=== PATIENT | female | born 1990 ===

== ENCOUNTER 2017-11-10 10:54 | Emergency (ER) | payer MEDICAID ==
[2017-11-10 11:37] VITALS: RESP 20
--- NOTE | 2017-11-10 12:50 | ED PDOC ---
HPI: Female Pain Time Seen by Provider: 11/10/17 11:33 Chief Complaint (Nursing): GI Problem Chief Complaint (Provider): Vaginal discharge, nausea History Per: Patient History/Exam Limitations: no limitations Onset/Duration Of Symptoms: Days Current Symptoms Are (Timing): Still Present Severity: None Additional Complaint(s): Pt states her LMP was 09/25/17. Pt states that she has been having nausea every day for the last few days. No fever/chills. Pt denies abdominal pain/pelvic pain. Pt denies vaginal discharge. Pt did not take test at home. Pt reports yellow discharge which is more than her normal discharge. Pt states it also has an abnormal odor to her. Past Medical History Reviewed: Historical Data, Nursing Documentation, Vital Signs Vital Signs: Last Vital Signs Temp 98.3 F 11/10/17 11:35 Pulse 76 11/10/17 11:35 Resp 20 11/10/17 11:35 BP 131/80 11/10/17 11:35 Pulse Ox 97 11/10/17 11:35 - Medical History PMH: No Chronic Diseases - Surgical History Surgical History: No Surg Hx - Family History Family History: States: No Known Family Hx - Living Arrangements Living Arrangements: With Family - Immunization History Hx Tetanus Toxoid Vaccination: No Hx Influenza Vaccination: No Hx Pneumococcal Vaccination: No - Home Medications Home Medications: Ambulatory Orders Medication Instructions Recorded Doxylamine/Pyridoxine HCl (B6) 2 each PO QPM #20 tablet. 11/10/17 [Aaron Moreno 10-10 mg Tablet] - Allergies Allergies/Adverse Reactions: Allergies Allergy/AdvReac Type Severity Reaction Status Date / Time No Known Allergies Allergy Verified 11/10/17 11:37 Review of Systems ROS Statement: Except As Marked, All Systems Reviewed And Found Negative Constitutional: Negative for: Fever, Chills Genitourinary Female: Positive for: Vaginal Discharge. Negative for: Dysuria, Frequency, Vaginal Bleeding, Pelvic Pain Physical Exam - Reviewed Nursing Documentation Reviewed: Yes Vital Signs Reviewed: Yes - Physical Exam Appears: Positive for: Well, Non-toxic, No Acute Distress Head Exam: Positive for: ATRAUMATIC, NORMAL INSPECTION, NORMOCEPHALIC Skin: Positive for: Normal Color, Warm, DRY Eye Exam: Positive for: Normal appearance ENT: Positive for: Normal ENT Inspection Neck: Positive for: Normal, Painless ROM Cardiovascular/Chest: Positive for: Regular Rate, Rhythm Respiratory: Positive for: CNT, Normal Breath Sounds Gastrointestinal/Abdominal: Positive for: Normal Exam, Soft. Negative for: Tenderness Pelvic Exam: Positive for: External Exam Normal, No Cerv. Motion Tender, No Masses, Active Bleeding, Discharge (Yellow). Negative for: Speculum Exam Normal Back: Positive for: Normal Inspection Extremity: Positive for: Normal ROM Neurologic/Psych: Positive for: Alert - ECG O2 Sat by Pulse Oximetry: 97 Medical Decision Making Medical Decision Making: Peg (+) Discussed prenatals. Disposition - Clinical Impression Clinical Impression: Nausea/vomiting in , Vaginal discharge Counseled Patient/Family Regarding: Diagnosis, Need For Followup, Rx Given - Disposition Disposition: Routine/Home Disposition Time: 12:50 Condition: GOOD Prescriptions: Doxylamine/Pyridoxine HCl (B6) [Aaron Moreno 10-10 mg Tablet] 2 each PO QPM #20 tablet. Instructions: (ED)
[2017-11-10 13:09] VITALS: BP 112/78; PULSE 72; TEMP 98; O2SAT 98
== END 2017-11-10 13:11 | disposition home or self-care (01) ==
LOC: H.ER 10:54
DX: O21.9 Vomiting of pregnancy, unspecified (principal); N89.8 Other specified noninflammatory disorders of vagina

== ENCOUNTER 2017-11-23 21:41 | Emergency (ER) | payer MEDICAID, OTHER ==
[2017-11-23 21:48] VITALS: BP 138/87; PULSE 74; RESP 16; TEMP 98.1; O2SAT 99
[2017-11-23] MEDS ORDERED: Sodium Chloride 0.9% 1,000 ML IV STA (22:04)
--- NOTE | 2017-11-23 22:06 | ED PDOC ---
HPI:Nausea, Vomiting, Diarrhea Time Seen by Provider: 11/23/17 21:49 Chief Complaint (Nursing): GI Problem Chief Complaint (Provider): nausea/vomiting History Per: Patient History/Exam Limitations: no limitations Onset/Duration Of Symptoms: Days, Waxing/Waning Current Symptoms Are (Timing): Still Present Additional History Per: Patient Additional Complaint(s): 27 y/o female, approximately 8 weeks gestation, presents with nausea/vomiting x 3 days. Patient states symptoms have been on-and-off x 2 weeks, was seen in ED and prescribed medicine which helped but ran out of that medicine. Denies fever , chest pain, shortness of breath, palpitations, abdominal/pelvic pain, vaginal bleeding/discarge, urinary symptoms. Patient has not yet received care. Past Medical History Reviewed: Historical Data, Nursing Documentation, Vital Signs Vital Signs: Last Vital Signs Temp 98.1 F 11/23/17 21:44 Pulse 74 11/23/17 21:44 Resp 16 11/23/17 21:44 BP 138/87 11/23/17 21:44 Pulse Ox 99 11/23/17 21:44 - Medical History PMH: No Chronic Diseases - Surgical History Surgical History: No Surg Hx - Family History Family History: States: No Known Family Hx - Living Arrangements Living Arrangements: With Family - Immunization History Hx Tetanus Toxoid Vaccination: No Hx Influenza Vaccination: No Hx Pneumococcal Vaccination: No - Home Medications Home Medications: Ambulatory Orders Medication Instructions Recorded Doxylamine/Pyridoxine HCl (B6) 2 each PO QPM #20 tablet. 11/10/17 [Aaron Moreno 10-10 mg Tablet] Doxylamine/Pyridoxine HCl (B6) 1 - 2 each PO HS #16 tablet. 11/23/17 [Aaron Moreno 10-10 mg Tablet] - Allergies Allergies/Adverse Reactions: Allergies Allergy/AdvReac Type Severity Reaction Status Date / Time No Known Allergies Allergy Verified 11/10/17 11:37 Review of Systems ROS Statement: Except As Marked, All Systems Reviewed And Found Negative Gastrointestinal: Positive for: Nausea, Vomiting Physical Exam - Reviewed Nursing Documentation Reviewed: Yes Vital Signs Reviewed: Yes - Physical Exam Appears: Positive for: Well, Non-toxic, No Acute Distress Head Exam: Positive for: ATRAUMATIC, NORMAL INSPECTION, NORMOCEPHALIC Skin: Positive for: Normal Color Eye Exam: Positive for: Normal appearance ENT: Positive for: Normal ENT Inspection Cardiovascular/Chest: Positive for: Regular Rate, Rhythm Respiratory: Positive for: Normal Breath Sounds Gastrointestinal/Abdominal: Positive for: Normal Exam Back: Positive for: Normal Inspection Extremity: Positive for: Normal ROM Neurologic/Psych: Positive for: Alert, Oriented - Laboratory Results Result Diagrams: 11/23/17 22:50 11/23/17 22:50 - ECG O2 Sat by Pulse Oximetry: 99 - Progress ED Course And Treament: labs, urine, IV fluids, IV reglan On re-eval, patient states she is feeling better; tolerating PO. Patient educated on findings, discharged with rx Aaron. Advised follow up Epic Kaleidoscope Analyst 2-3 days. Return precautions given. Disposition - Clinical Impression Clinical Impression: Hyperemesis gravidarum - Patient ED Disposition Is Patient to be Admitted: No Counseled Patient/Family Regarding: Studies Performed, Diagnosis, Need For Followup, Rx Given - Disposition [facility]errals: [facility]] [facility] [Outside] Disposition: Routine/Home Disposition Time: 01:30 Condition: IMPROVED Prescriptions: Doxylamine/Pyridoxine HCl (B6) [Aaron Moreno 10-10 mg Tablet] 1 - 2 each PO HS # 16 tablet. Instructions: Hyperemesis Gravidarum (ED) Forms: [employer] (Lao)
[2017-11-23 23:02] LABS: BASO % 0.5 % (0.0-2.0); EOS # 0.1 K/uL (0.0-0.7); EOS % 1.2 % (0.0-4.0); LYMPH # 2.3 K/uL (1.0-4.3); LYMPH % 25.4 % (20.0-40.0); MEAN CELL VOLUME 89.8 fl (81.0-99.0); MEAN CORPUSCULAR HEMOGLOBIN 30.3 pg (27.0-31.0); MEAN CORPUSCULAR HGB CONC 33.7 g/dL (33.0-37.0); MEAN PLATELET VOLUME 10.6 fl (7.2-11.7); MONO # 1.1 K/uL (0.0-0.8); MONO % 12.1 % (0.0-10.0); NEUT # 5.5 K/uL (1.8-7.0); NEUT % 60.8 % (50.0-75.0); NRBC % 0.1 % (0.0-0.0); RBC 4.64 Mil/uL (3.80-5.20)
[2017-11-23 23:12] LABS: ALB/GLOB RATIO 1.5 (1.0-2.1); ALBUMIN 4.8 g/dL (3.5-5.0); CALCIUM 9.8 mg/dL (8.4-10.2); GFR AFRICAN-AMERICAN > 60; GFR NON-AFRICAN AMERICAN > 60
[2017-11-23 23:15] LABS: ALT/SGPT 65 U/L (9-52); AST/SGOT 38 U/L (14-36); BLOOD UREA NITROGEN 13 mg/dl (7-17)
[2017-11-24 01:20] LABS: SQUAMOUS EPITHIAL 19 /hpf (0-5); URINE AMORPHOUS SEDIMENT RARE /ul (<OCC); URINE BACTERIA OCC (<OCC); URINE BILIRUBIN NEGATIVE (NEGATIVE); URINE CALCIUM OXALATE CRYSTALS RARE /hpf (<OCC); URINE CLARITY CLOUDY (Clear); URINE COLOR AMBER (YELLOW); URINE GLUCOSE (UA) NEG (Normal); URINE NITRATE NEGATIVE (NEGATIVE); URINE PROTEIN 30 mg/dL (NEGATIVE)
[2017-11-24 01:21] LABS: URINE BLOOD SMALL (NEGATIVE); URINE LEUKOCYTE ESTERASE SMALL Leu/uL (Negative)
== END 2017-11-24 01:37 | disposition home or self-care (01) ==
LOC: H.ER 21:41
DX: O21.0 Mild hyperemesis gravidarum (principal); O99.89 Other specified diseases and conditions complicating pregnancy, childbirth and the puerperium; Z3A.08 8 weeks gestation of pregnancy
CPT/HCPCS: 80053; 81003; 81025; 85025; 87086; 96360; 99283; J2765; J7040

== ENCOUNTER 2017-12-07 20:45 | Emergency (ER) | payer MEDICAID, OTHER ==
[2017-12-07 21:02] VITALS: BP 124/81; PULSE 84; RESP 16; TEMP 98.6; O2SAT 98
[2017-12-07] MEDS ORDERED: Sodium Chloride 0.9% 1,000 ML IV STA (22:25)
--- NOTE | 2017-12-07 22:28 | ED PDOC ---
HPI:Nausea, Vomiting, Diarrhea Time Seen by Provider: 12/07/17 22:19 Chief Complaint (Nursing): Abdominal Pain Chief Complaint (Provider): Vomiting History Per: Patient History/Exam Limitations: no limitations Onset/Duration Of Symptoms: Days (3) Current Symptoms Are (Timing): Still Present Additional Complaint(s): Nausea, vomit, nonbloody for 3 days. Cough, nasal congestion. Same symptoms few weeks ago. Denies any abd pain, weakness, chest pain, vaginal bleeding, dysuria. No weakness. Is preg. No care anywhere. Past Medical History Reviewed: Nursing Documentation, Vital Signs Vital Signs: Last Vital Signs Temp 98.6 F 12/07/17 20:53 Pulse 84 12/07/17 20:53 Resp 16 12/07/17 20:53 BP 124/81 12/07/17 20:53 Pulse Ox 98 12/07/17 20:53 - Medical History PMH: No Chronic Diseases - Surgical History Surgical History: No Surg Hx - Family History Family History: States: Unknown Family Hx - Living Arrangements Living Arrangements: With Family - Social History Current smoker - smoking cessation education provided: No Alcohol: None Drugs: Denies - Immunization History Hx Tetanus Toxoid Vaccination: No Hx Influenza Vaccination: No Hx Pneumococcal Vaccination: No - Home Medications Home Medications: Ambulatory Orders Medication Instructions Recorded Doxylamine/Pyridoxine HCl (B6) 2 each PO QPM #20 tablet. 11/10/17 [Aaron Moreno 10-10 mg Tablet] Doxylamine/Pyridoxine HCl (B6) 1 - 2 each PO HS #16 tablet. 11/23/17 [Aaron Moreno 10-10 mg Tablet] Doxylamine/Pyridoxine HCl (B6) 1 each PO QPM 10 Days tablet. 12/07/17 [Aaron Moreno 10-10 mg Tablet] - Allergies Allergies/Adverse Reactions: Allergies Allergy/AdvReac Type Severity Reaction Status Date / Time No Known Allergies Allergy Verified 11/10/17 11:37 Review of Systems ROS Statement: Except As Marked, All Systems Reviewed And Found Negative Gastrointestinal: Positive for: Nausea, Vomiting Physical Exam - Reviewed Nursing Documentation Reviewed: Yes Vital Signs Reviewed: Yes - Physical Exam Appears: Positive for: Non-toxic, No Acute Distress Head Exam: Positive for: ATRAUMATIC, NORMAL INSPECTION, NORMOCEPHALIC Skin: Positive for: Normal Color, Warm, DRY Eye Exam: Positive for: EOMI, Normal appearance, PERRL ENT: Positive for: Normal ENT Inspection Neck: Positive for: Normal, Painless ROM Cardiovascular/Chest: Positive for: Regular Rate, Rhythm Respiratory: Positive for: CNT, Normal Breath Sounds Gastrointestinal/Abdominal: Positive for: Normal Exam, Bowel Sounds, Soft. Negative for: Tenderness Back: Positive for: Normal Inspection. Negative for: L CVA Tenderness, R CVA Tenderness Extremity: Positive for: Normal ROM. Negative for: Tenderness, Pedal Edema Neurologic/Psych: Positive for: Alert, Oriented - Laboratory Results Result Diagrams: 12/07/17 23:00 12/07/17 23:00 - ECG O2 Sat by Pulse Oximetry: 98 Pulse Ox Interpretation: Normal Disposition - Clinical Impression Clinical Impression: Hyperemesis gravidarum - Patient ED Disposition Is Patient to be Admitted: No Counseled Patient/Family Regarding: Studies Performed, Diagnosis, Need For Followup, Rx Given - Disposition [facility]errals[facility] - 12/08/17 Disposition: Routine/Home Disposition Time: 23:52 Condition: STABLE Prescriptions: Doxylamine/Pyridoxine HCl (B6) [Aaron Moreno 10-10 mg Tablet] 1 each PO QPM 10 Days tablet. Instructions: Hyperemesis Gravidarum (ED) Print Language: DANISH
[2017-12-07 23:04] LABS: BASO # 0.1 K/uL (0.0-0.2); BASO % 0.5 % (0.0-2.0); EOS % 0.3 % (0.0-4.0); HEMOGLOBIN 14.1 g/dL (12.0-16.0); LYMPH # 1.5 K/uL (1.0-4.3); LYMPH % 12.5 % (20.0-40.0); MEAN CELL VOLUME 89.1 fl (81.0-99.0); MEAN CORPUSCULAR HEMOGLOBIN 30.3 pg (27.0-31.0); MEAN PLATELET VOLUME 10.9 fl (7.2-11.7); MONO # 0.7 K/uL (0.0-0.8); MONO % 6.2 % (0.0-10.0); NEUT # 9.8 K/uL (1.8-7.0); NEUT % 80.5 % (50.0-75.0); RBC 4.66 Mil/uL (3.80-5.20); RED CELL DISTRIBUTION WIDTH 12.8 % (11.5-14.5); WHITE BLOOD COUNT 12.1 K/uL (4.8-10.8)
[2017-12-07 23:19] LABS: BLOOD UREA NITROGEN 9 mg/dl (7-17); CALCIUM 9.7 mg/dL (8.4-10.2); GFR AFRICAN-AMERICAN > 60; GFR NON-AFRICAN AMERICAN > 60
== END 2017-12-08 00:12 | disposition home or self-care (01) ==
LOC: H.ER 20:45
DX: O21.0 Mild hyperemesis gravidarum (principal)
CPT/HCPCS: 80048; 83690; 84702; 85025; 96360; 99282; J2765; J7040

== ENCOUNTER 2018-06-28 09:30 | Emergency (ER) | payer SELFPAY ==
[2018-06-28] MEDS ORDERED: Lactated Ringer's 1,000 ML IV SCH (11:30)
[2018-06-28 11:31] VITALS: BMI 25.4
--- NOTE | 2018-06-28 17:00 | OBHP ---
Datetime: 06/28/2018 11:27 IP Adm Impression: Term, intrauterine IP Admit Plan: Observation/Evaluation; Discharge home Admit Comment, IP Provider: Pt is , 39.3 wk present to [facility] due to vaginal bleeding and abd pain . PT state that she noted vaginal bleed on paper and toilet at 8:30 am today (06/28/09). Pt denies gu sh of fluid, or regular contraction. Pt Last sexual activity was 1 week ago, last visit was on . Pt have no other complain at moment. Pt denies fever, chills, Dizziness, headache, SOB chest pain, constipation or diarrhea. PT denies dysuria or polyuria. Allergy: none MED: PMH: none PSH:none Social: no smoke, drink or alcohol use 12:04 Assessment: Pt is , 39.3 wk present to [facility] due to vaginal bleeding and abd pain. PT state roseann t she noted vaginal bleed on paper and toilet at 8:30 am today (06/28/09). Pt is lying comfortable in bed with no acute distress Vitals: WNL monitor strip reassuring PE: Cervics is 1cm, 65%,-1 at 11:15 Plan Start IV LR 1000 at 999 Monitor vitals Monitor strip Reassess at 13:15 15:30 Reassessment Pt is lying comfortable in bed with no acute distress Pt contraction decreased after fluid was given VItal: WNL Strip is reassuring. PE: cervics still 1cm, 65%, -1 Plan Pt will be discharged due to pt is not in labor. Pt was educated about active labor Pt should continue following clinic. Pt should come to ER if see gush of water, increase bleeding, frequent contraction please go to ER . Case disccussed with Dr Geraldine Tinoco PGY1OB Hospitalist Addendum: Pt seen and examined by me. Agree w/ above. 28 yo G1 at 39+3 wks w/ c/o va ginal bleeding and ctxns. Spec: no bleeding. VE loose /-1 at 11:15am. Pt given IV fluid. VE u nchanged at 3:25 pm. NST reactive. Pt discharged home w/ labor precautions. (ES) Pelvic Type - PN: Adequate Extremities - PN: Normal Abdomen - PN: Normal Back - PN: Not Done Breast - PN: Not Done Lungs - PN: Normal Heart - PN: Normal Thyroid - PN: Not Done Neurologic - PN: Not Done HEENT - PN: Normal General - PN: Normal FHR - Baseline A Provider: 135 Comments, ACOG Physical Exam: Pt is lying comfortable in bed with no acute distress Cardiac : s1,s2 heard no extra heart sound Lung: clear lung in all quadrant Abd: BS+, mild tender, fundus above fundos Extremities: no calf tenderness Pelvic: no blood noted, cervic 1cm, 65%, -1 Pelvic exam was reassessed (15:30) No blood noted, cervic 1cm, 65% , -1 Gestation - Est Wks by US: 39.3 Vital Signs Provider: Reviewed; Within Normal Limits IP Chief Complaint: Uterine contractions; Vaginal bleeding NICHD Variability Prov Fetus A: Moderate 6-25bpm Dilatation, Provider: 1 Genitourinary Exam: Not Done DTRs - PN: Not Done
[2018-06-29 00:05] VITALS: RESP 18; TEMP 98.9
[2018-06-30 00:02] VITALS: BP 113/74; PULSE 72; O2SAT 99
== END 2018-06-28 15:30 | disposition home or self-care (01) ==
LOC: H.EROB2 09:30 → H.L&D 10:07 → H.EROB2 15:30
DX: O46.93 Antepartum hemorrhage, unspecified, third trimester (principal); O26.93 Pregnancy related conditions, unspecified, third trimester; R10.2 Pelvic and perineal pain; Z3A.39 39 weeks gestation of pregnancy; O47.1 False labor at or after 37 completed weeks of gestation

== ENCOUNTER 2018-06-29 09:49 | Emergency (ER) | payer SELFPAY ==
[2018-06-28 11:31] VITALS: BMI 25.4
[2018-06-29 19:07] VITALS: BP 113/74; PULSE 72; RESP 18; O2SAT 99
== END 2018-06-29 10:50 | disposition home or self-care (01) ==
LOC: H.EROB2 09:49
DX: O26.93 Pregnancy related conditions, unspecified, third trimester (principal); R10.2 Pelvic and perineal pain; Z3A.39 39 weeks gestation of pregnancy; O47.1 False labor at or after 37 completed weeks of gestation

== ENCOUNTER 2018-06-30 01:15 | Inpatient (IN) | payer MEDICAID, SELFPAY ==
[2018-06-30 02:28] VITALS: BMI 25.7
[2018-06-30] MEDS ORDERED: Lactated Ringer's 1,000 ML IV ONE (02:28)
[2018-06-30] MEDS ORDERED: Lactated Ringer's 1,000 ML IV SCH ×3 (02:30→21:00)
[2018-06-30 03:06] LABS: BASO # 0.1 K/uL (0.0-0.2); BASO % 0.5 % (0.0-2.0); EOS % 0.1 % (0.0-4.0); HEMOGLOBIN 13.5 g/dL (12.0-16.0); LYMPH # 1.7 K/uL (1.0-4.3); LYMPH % 13.9 % (20.0-40.0); MEAN CELL VOLUME 88.2 fl (81.0-99.0); MEAN CORPUSCULAR HEMOGLOBIN 30.7 pg (27.0-31.0); MEAN CORPUSCULAR HGB CONC 34.8 g/dL (33.0-37.0); MEAN PLATELET VOLUME 11.4 fl (7.2-11.7); MONO % 7.8 % (0.0-10.0); NEUT # 9.6 K/uL (1.8-7.0); NEUT % 77.7 % (50.0-75.0); NRBC % 0.1 % (0.0-0.0); RBC 4.39 Mil/uL (3.80-5.20); RED CELL DISTRIBUTION WIDTH 14.3 % (11.5-14.5); WHITE BLOOD COUNT 12.4 K/uL (4.8-10.8)
[2018-06-30] MEDS ORDERED: Fentanyl/Bupivacaine HCl 250 ML EPI ONE (03:45)
[2018-06-30 05:42] VITALS: RESP 20
[2018-06-30] MEDS ORDERED: Oxytocin 30 UNIT 30 UNITS/500 ML BAG IV ONE ×2 (06:18→07:58)
[2018-06-30] MEDS ORDERED: OXYTOCIN/0.9 % NS 20 UNIT/1,000 ML BAG IV SCH (08:00)
--- NOTE | 2018-06-30 09:09 | OBHP ---
Datetime: 06/30/2018 02:41 IP Admit Plan: Admit to unit; Initiate labor protocol FHR - Baseline A Provider: 140 Comments, ACOG Physical Exam: GEN: NAD HEENT: Normocephalic, EOMI RESP: CTA b/l CV: RRR, No murmurs noted ABD: gravid, soft LE: No edema NEuro: AAOx3 EGA AdmitDate IP: 39.5 Vital Signs Provider: Reviewed; Within Normal Limits IP Chief Complaint: Uterine contractions NICHD Variability Prov Fetus A: Moderate 6-25bpm FHR Category Provider Fetus A: Category I Dilatation, Provider: 5 Effacement, Provider: 80 Datetime: 06/30/2018 02:19 NICHD Accel Fetus A IP Provider: [id number] Datetime: 06/29/2018 11:00 IP Adm Impression: Term, intrauterine ; No Active Labor; Intact Membranes Admit Comment, IP Provider: Aniya is a 28 year old at 39.4 weeks who presented to triage for a few hours of painful contractions about 6 minutes apart that began a few hours before presentation. S he was seen in triage yesterday with complaints of ctx and vaginal spotting and was dilated to 1cm at that time. Denies vaginal bleeding or LOF. Good movement. Pregnancies G1: current, denies complications PMH: Denies PSH: Denies Medications: PNV ALLERGIES: NKDA Social: Denies tobacco, alcohol, drug use Objective See PE section A/P: 28 yo at 39.4 in latent labor. EFM Category I. Reviewed options with her given her laten t labor status of admission for pain control or discharge with return precautions once she is closer to active labor. She decided to labor at home and will return once her contractions are 3-5 minutes a part or more painful in intensity. OB Hospitalist note Pt seen and agree with above note by Miranda Smith OB Fellow...discharge home YARON SUAREZENT - PN: Normal General - PN: Normal Membranes, Provider: Intact Gestation - Est Wks by US: 39.4 IP Hx Assessment: The History has been Reviewed and is Current NICHD Decel Fetus A IP Provider: None Station, Provider: -1
--- NOTE | 2018-06-30 09:11 | OBADHP ---
Datetime: 06/30/2018 02:41 FHR - Baseline A Provider: 140 Comments, ACOG Physical Exam: GEN: NAD HEENT: Normocephalic, EOMI RESP: CTA b/l CV: RRR, No murmurs noted ABD: gravid, soft LE: No edema NEuro: AAOx3 Vital Signs Provider: Reviewed; Within Normal Limits IP Chief Complaint: Uterine contractions NICHD Variability Prov Fetus A: Moderate 6-25bpm FHR Category Provider Fetus A: Category I Dilatation, Provider: 5 Effacement, Provider: 80 EGA AdmitDate IP: 39.5 IP Admit Plan: Admit to unit; Initiate labor protocol Datetime: 06/30/2018 02:19 Admit Comment, IP Provider: HPI: 28 y/o with EGA of 39.5 weeks, JAJA 07/02/18 who presents to E with c/o pelvic pain and pressure that started yesterday at 8AM and has increased in intensity no w 5 to 6/10, intermittent Q4 min associated with uterine contractions, Patient reports she was seen h ere in triage EDOB yesterday and was discharged home with 3 cm of cervical dilation, but she had less contractions at that time, patient reports also vaginal spotting of blood, denies LOF, positive for good FM. Patient reports last sexual activity 1 week ago. Denies ABDI, chest pain, SOB, calf pain, or d izziness. ROS: Unremarkable, except as per HPI. OBGYN: Menarche 10 y/o, denies hx of complications with current . PNC: Dr Millan at [facility] PMHx: Denies FMHx: None SurgHx: None Allerg: NKA MEDS: PNV LABS: HIV negative, HBSAg negative, GBS done on 05/31/18 no growth, GC/CL negative, RPR nonreactive , Rubella: +/[place], ABORh O+, Ab negative, PPD negative. Assessment/Plan This is a 28 y/o at 39.5 weeks who presented to [facility]OB few hours early with 3 cm of cervical di lation, now patient returns with increasing pelvic pain and uterine contractions Q4 min with Cervix d ilation of 5 cm -admit to L _D -Maternal VS and FHR monitoring -Hydration w/ IVF LR bolus and then continue with 125ml/hr -CBC and type and screen -Anesthesia eval for possible epidural Case discussed with attending Dr Alise Joy. Ivory Logan MD PGY1 OB Hospitalist note: Pt seen and examined with PGY1 Agree woth note. Observe labor progress MAHND O Pelvic Type - PN: Adequate Extremities - PN: Normal Abdomen - PN: Normal Back - PN: Normal Breast - PN: Not Done Lungs - PN: Normal Heart - PN: Normal Thyroid - PN: Normal Neurologic - PN: Normal HEENT - PN: Normal General - PN: Normal Presentation-Admit: Vertex Membranes, Provider: Intact Pool Provider: Negative NICHD Accel Fetus A IP Provider: [id number] Genitourinary Exam: Normal DTRs - PN: Normal IP Adm Impression: Term, intrauterine ; Active labor; Intact Membranes Datetime: 06/29/2018 11:00 Gestation - Est Wks by US: 39.4 IP Hx Assessment: The History has been Reviewed and is Current NICHD Decel Fetus A IP Provider: None Station, Provider: -1
--- NOTE | 2018-06-30 09:16 | OBPN ---
Datetime: 06/30/2018 06:45 IP Progress Impression: Reassuring heart rate IP Progress Plan: Augmentation; Anticipate Vaginal Delivery IP Progress Note Comment: Notified that follow up exam there was no cervical change. PLAN: I spoek with pt about augmentation. She agrees to Pitocin augmentation...start at 1miu/ml a nd increase as per protocol FHR Category Provider Fetus A: Category I Datetime: 06/30/2018 02:41 FHR - Baseline A Provider: 140 Vital Signs Provider: Reviewed; Within Normal Limits NICHD Variability Prov Fetus A: Moderate 6-25bpm Dilatation, Provider: 5 Effacement, Provider: 80 Datetime: 06/30/2018 02:19 Pool Provider: Negative Membranes, Provider: Intact Presentation-Admit: Vertex NICHD Accel Fetus A IP Provider: [id number] Datetime: 06/29/2018 11:00 Gestation - Est Wks by US: 39.4 Station, Provider: -1 NICHD Decel Fetus A IP Provider: None
[2018-06-30] MEDS ORDERED: Bupivacaine HCl 0.5% PF (30 ml) Inj ONE (16:11)
[2018-06-30] MEDS ORDERED: Acetaminophen 325 MG/10.15 ML PO PRN (18:56)
--- NOTE | 2018-06-30 19:14 | OBPN ---
Datetime: 06/30/2018 10:31 IP Progress Impression: Arrest of dilatation/descent; Reassuring heart rate IP Progress Plan: Augmentation; Induction Contraction Comments Provider: Contraction every 2 min FHR - Baseline A Provider: 130 IP Fetus A Comments: deceleration noted at 6:42 Gestation - Est Wks by US: 39.5 Presentation-Admit: Vertex IP Progress Note Comment: [facility] Pt is lying on bed comfortable with no acute distress. She state she had the epidural done and its working. Pt report regular contraction s he feel the pressure but not the pain. Pt have no other symptoms at moment. Pt denies fever chills, headache, chest pain, sob, abd pain. PE: pt is lying comfortable with no acute distress, epidural line noted, IV line is noted cardio s1 s2 heard no murmur or extrea heartsound lung clear in all quadrant abd: tocometer on abdomen, BS+, nontender, fundos above umbilicus extremities: no calf tenderness Pelvic: 5cm, 100%,-3 head wasnet well applied, no sign of active bleed( Pelvic exam was done at 8: 48) Assessment This is a 28 yo f 39.5 wk presented to [facility] due to Increase contraction. pt was admitted for active delivery. PT is currently in latent phase, Been dialated at 5cm since 2:00 (06/30/18) with no progress Pt is not acute distress Epidural is done at 4:00am Pitocin started at 8:48 for augmentation Plan Will do a pelvic exam at 12:00 pm to reassess Case discussed with Dr Peralta Resident [id number] pt seen _ examined by me w/ dr. freeman Vital Signs Provider: Reviewed; Within Normal Limits NICHD Accel Fetus A IP Provider: [id number] FHR Category Provider Fetus A: Category II NICHD Variability Prov Fetus A: Moderate 6-25bpm Dilatation, Provider: 5 Effacement, Provider: 100 Station, Provider: -3 NICHD Decel Fetus A IP Provider: Variable
--- NOTE | 2018-06-30 19:27 | OBPN ---
Datetime: 06/30/2018 19:13 IP Progress Note Comment: notified by nurse of pt w/ elev temp of 100.7 @18:48 o: fhr 150s miniml variablility w/ scalp stim accelerations to to fhr 170s- pt reported feta l movement w/ scalp stimulation. 39.5wks maternal fever decreased variability p: tylenol administered epidurl turned off
[2018-06-30] MEDS ORDERED: Gentamicin 80 mg/2mL Inj. IVPB SCH (20:00)
[2018-06-30] MEDS ORDERED: SODIUM CHLORIDE 0.9% IVPB SCH (20:15)
[2018-06-30] MEDS ORDERED: GENTAMICIN IVPB SCH (20:15)
[2018-06-30] MEDS ORDERED: Gentamicin 80 mg/2mL Inj. ONE (20:51)
[2018-06-30] MEDS ORDERED: EPINEPHrine 1 mg/ml (1:1000) Inj ONE (20:58)
[2018-06-30] MEDS ORDERED: Midazolam 2 MG/2 ML VIAL ONE (21:57)
[2018-06-30] MEDS ORDERED: AMPicillin 2 GM in Sodium Chloride 0.9% 100 ML IVPB SCH (22:00)
[2018-06-30] MEDS ORDERED: Ketamine 50 mg/ml Inj (10 ml) ONE (22:08)
[2018-06-30] MEDS ORDERED: Oxycodone/Acetaminophen 5/325 mg Tab PO PRN ×2 (23:17)
[2018-07-01] MEDS ORDERED: OXYTOCIN/0.9 % NS 20 UNIT/1,000 ML BAG IV SCH (02:20)
[2018-07-01] MEDS ORDERED: Oxycodone/Acetaminophen 5/325 mg Tab PO PRN (02:20)
[2018-07-01] MEDS ORDERED: AMPicillin 2 GM in Sodium Chloride 0.9% 100 ML IVPB SCH (04:00)
[2018-07-01 06:44] LABS: MEAN CELL VOLUME 90.5 fl (81.0-99.0); MEAN CORPUSCULAR HEMOGLOBIN 30.5 pg (27.0-31.0); MEAN CORPUSCULAR HGB CONC 33.6 g/dL (33.0-37.0); RBC 3.95 Mil/uL (3.80-5.20); RED CELL DISTRIBUTION WIDTH 14.3 % (11.5-14.5); WHITE BLOOD COUNT 18.7 K/uL (4.8-10.8)
--- NOTE | 2018-07-01 07:49 | OBDS ---
DELIVERY PERSONNEL Delivery Doctor: Nash Lozoya MD Scrub Nurse: Tabatha Sanchez Tank Calibrator: Magda Gage RN Anesthesiologist: Boubacar Clements MD Resident: Dr. Cristobal Fellow, Dr. Carey PGY2 MATERNAL INFORMATION Delivery Anesthesia: Epidural Medications in Delivery: clyndomycin, gentamycin, apicillin, pitocin Estimated Blood Loss (ml): 800 Placenta Cultured: No Maternal Complications: Maternal Fever Other Maternal Complications: tachycardia Provider Comments: op note preop dx: 39.5wks; maternal fever; tachycardia; nonreassuring status postop dx: same procedure: LFTCD surg: alfie bejarano 1st asst: dr doug kate, fellow 2nd asst: dr carey pgy2 ebl 800cc findings: viable female, [id number], apgr 9_9 complic: none pt to rr in satisfactory condition neon to special care nursery LABOR SUMMARY EDC: 07/02/2018 00:00 No. Babies in Womb: 1 Attempted: No Labor Anesthesia: Epidural LABOR INFORMATION Reason for Induction: Not Applicable Onset of Labor: 06/30/2018 02:07 Complete Dilatation: 06/30/2018 17:40 Oxytocin: Augmentation Group B Beta Strep: Negative Steroids Given: None Reason Steroids Not Administered: Not Applicable MEMBRANES Membranes Rupture Method: Artificial Rupture of Membranes: 06/30/2018 12:15 Length of Rupture (hrs): 9.38 Amniotic Fluid Color: Bloody Amniotic Fluid Amount: Moderate STAGES OF LABOR Stage 1 hrs: 15 Stage 1 min: 33 Stage 2 hrs: 3 Stage 2 min: 58 Stage 3 hrs: 0 Stage 3 min: 0 Total Time in Labor hrs: 19 Total Time in Labor min: 31 CSECTION DELIVERY Primary Indication: Other Other Primary Indication: Maternal fever Secondary Indication: Tachycardia CSection Urgency: Elective CSection Incidence: Primary Labor: Labor Elective: Elective CSection Incision: Lower Uterine Transverse BABY A INFORMATION Delivery Date/Time: 06/30/2018 21:38 Method of Delivery: Born in Route : No : N/A Forceps: N/A Vacuum Extraction: N/A Shoulder Dystocia : No SHOULDER DYSTOCIA BABY A Delivery Date/Time: 06/30/2018 21:38 PRESENTATION/POSITION BABY A Presentation: Cephalic Cephalic Presentation: Vertex Breech Presentation: N/A PLACENTA INFORMATION BABY A Placenta Delivery Time : 06/30/2018 21:38 Placenta Method of Delivery: Expressed Placenta Status: Delivered SCORES BABY A Heart Rate 1 min: >100 bpm Resp Effort 1 min: Good Cry Reflex Irritability 1 min: Cough or Sneeze or Pulls Away Muscle Tone 1 min: Active Motion Color 1 min: Body Ken Caryl, Extremities Blue Resuscitation Effort 1 min: N/A SCORE 1 MIN: 9 Heart Rate 5 min: >100 bpm Resp Effort 5 min: Good Cry Reflex Irritability 5 min: Cough or Sneeze or Pulls Away Muscle Tone 5 min: Active Motion Color 5 min: Body Ken Caryl, Extremities Blue Resuscitation Effort 5 min: N/A SCORE 5 MIN: 9 INFANT INFORMATION BABY A Gestational Age at Delivery: 39.5 Gestational Status: Term Outcome : Liveborn Condition : Stable Infant Sex: Female IDENTIFICATION/MEDS BABY A ID Band Number: [id number] ID Band Location: Left Leg; Left Arm WEIGHT/LENGTH BABY A Infant Birthweight (gms): 3000 Infant Weight (lb): 6 Infant Weight (oz): 10 CORD INFORMATION BABY A No. Cord Vessels: 3 Nuchal Cord : N/A Nuchal Cord Other: N/A True Knot: N/A Infant Cord pH Baby Arterial: N/A Cord pH Baby Venous: N/A Cord Blood Taken: Yes Banking/Donate Info: N/A Infant Suction: Mouth; Nose ASSESSMENT BABY A Complications: None Physical Findings at Delivery: Within Normal Limits Physical Findings Other: NB to go NSY after skin to skin in OR as per Dr. Mcadams for CBC and blood culture. K Rojas-[place]it lact. cons. in OR assisting mother and Father with skin to skin and breast fee ding Respirations: Appears Normal Diesel Maintenance Electrician/ALS Called : No Infant Care By: Dr. Mcadams, LDomingoRN Transferred To: Remains with Mother
[2018-07-01] MEDS: AMPicillin 2 GM in Sodium Chloride 0.9% 100 ML IVPB SCH ×3 (08:06→19:58)
[2018-07-01] MEDS: Multivitamin With Minerals Tab PO SCH (08:09)
[2018-07-01] MEDS ORDERED: SODIUM CHLORIDE 0.9% IVPB ONE (08:16)
[2018-07-01] MEDS ORDERED: GENTAMICIN IVPB ONE (08:16)
[2018-07-01] MEDS: Oxycodone/Acetaminophen 5/325 mg Tab PO PRN ×3 (08:52→21:25)
[2018-07-01] MEDS ORDERED: Multivitamin With Minerals Tab PO SCH (09:00)
[2018-07-01] MEDS: Lactated Ringer's 1,000 ML IV SCH (10:20)
--- NOTE | 2018-07-01 11:15 | OBPPN ---
Datetime: 07/01/2018 07:04 PP Pain Prov: Within normal limits PP Nausea Prov: Denies PP Flatus Prov: Yes PP BM Prov: No PP Breasts Prov: Normal PP Heart Prov: Normal PP Lungs Prov: Normal PP Abdomen/Uterus Prov: Normal PP Lochia Prov: Normal PP CVA Tenderness Prov: Normal PP Extremities Prov: Normal PP C/S Incision Prov: Not Applicable PP Progress Prov: Abnormal PP Impression Prov: Normal progression; Endometritis PP Plan Prov: Continue present management; consult PP Progress Note Prov: Patient seen and examined this morning at bedside, s/p C section yesterday at 21:38, today in her POD1. Patient c/o moderate pelvic pain that gets relief with pain medication, [facility] has not started to ambulate yet, and has not started to take oral liquids, Chung cath was remov ed this morning with no reports of blood in urine, lochia noted more than menses in volume. Patient d enies ABDI, chills, subjective fever, blurry vision, chest pain, SOB, palpitations, calf pain. O: VS BP 98/63, HR 67, T 97.9 Physical Exam GEN: NAD HEENT: Normocephalic, EOMI. RESP: CTA b/l CV: RRR, no murmurs noted ABD: Soft, mild tenderness to gentle palpation of lower abd, uterus is firm at umbilicus level, rodriguez rgical incision covered by dressing. LE: No edema, Flaquito's negative Assessment/ Plan 28 y/o now, s/p due to tachycardia and maternal fever, now on her POD1 today, with appropriate post-op progression, afebrile. -Continue management with maternal VS monitoring. -Patient is getting IV antibx treatment with Genta, Ampicillin and Clindamycin, we will monitor Te mp if patient continues afebrile x24h with good progression will D/C Antibx. -Percocet (325/5) 1 to 2 tabs PO Q4h prn pain severe/moderate -Motrin 600 mg PO Q6h prn pain -Encourage and ambulation -Hydration, initiate oral route hydration and advance diet as tolerated. -D/C planning Case discussed with attending Dr Peralta. Ivory Logan MD PGY1 Attending addendum: I saw and examined the patient myself this morning. I reviewed the resident note above and agree with findings and management. Jazmyne Thomas MD Vital Signs Provider PP: Reviewed
[2018-07-02] MEDS: Multivitamin With Minerals Tab PO SCH ×2 (07:36→18:22)
--- NOTE | 2018-07-02 09:33 | OBPPN ---
Datetime: 07/02/2018 06:23 PP Pain Prov: Within normal limits PP Nausea Prov: Denies PP BM Prov: No PP Comments Phys Exam Prov: See progress note PP Impression Prov: Normal progression PP Plan Prov: Continue present management PP Progress Note Prov: 28 y/o F now s/p , seen and examined this morning in her POD2. The patient reports only mild lower abdomen pain that gets relief with pain medication, she is ambula ting w/o difficulties or dizziness, is tolerating PO regular food, voiding well w/o noted blood and w ith adequate output, is passing gas per rectum, but has not had a BM yet, patient reports lochia is l ess than menses in volume. Patient denies ABDI, chills, fever, cough, chest pain, palpitations, SOB, bl urry vision, N/V, calf pain. Patient reports she is baby and intercalating bottle-feedi ng too. O: VS WNL 103/61 HR 77 T 98.6 Note VS WNL in last 24 hours GEN: NAD HEENT: Normocephalic, EOMI. RESP: CTA b/l CV: RRR, S1 S2 present, no murmurs noted. ABD: Soft, uterus firm about 1 cm below umbilicus level, Sx incision well approximated, clean, no redness or discharge noted. LE: No edema, Flaquito's negative. A/P 28 y/o , with good post- progression after going today into her POD2. Patient is afebrile with VS WNL for more than 24h -D/C IV antibiotics given that patient is afebrile with all VS WNL for more than 24 h -Continue post- monitoring and management -Motrin 600 PO Q6h PRN pain -Percocet 5/325 1 to 2 tabs PO Q6h PRN pain moderate to severe -Encourage , ambulation, and use of incentive spirometer -D/C planning Ivory Logan MD PGY1 Attending addendum: I saw and examined the patient myself at bedside this morning. I reviewed the resident note above and agree with findings and management. Improved with . Afebrile, DC abx. Encouraged ambualtion. Patinet for wound check and exam on Thursday with Dr. Millan. PP check in 4-6wks w/ Dr. Millan . Anticipate DC tomorrow. Vital Signs Provider PP: Reviewed; Within Normal Limits
--- NOTE | 2018-07-02 09:43 | OP ---
Copied To: Rdaha Peralta MD Attending MD: Rahda Peralta MD PROCEDURE DATE: 06/30/2018 PREOPERATIVE DIAGNOSES: 1. A 39.5-week . 2. Maternal fever. 3. tachycardia. 4. Nonreassuring status. POSTOPERATIVE DIAGNOSES: 1. A 39.5-week . 2. Maternal fever. 3. tachycardia. 4. Nonreassuring status. PROCEDURE: Primary low transverse section. SURGEON: Radha Peralta MD ENTRY LEVEL BUSINESS ANALYST: Dr. Rajni Smith, Fellow. SECOND WATER RESOURCE CONSULTANT: Dr. Millan, PGY-2. ESTIMATED BLOOD LOSS: 800 mL. COMPLICATIONS: None. FINDINGS: Showed a viable female infant with 's of 9 and 9 and weight of 6 pounds 10 ounces. Grossly normal uterus, bilateral ovaries and tubes. DESTINATION: The patient to recovery room in satisfactory condition, to nursery. INDICATIONS: The patient is a 28-year-old female 1, who presented at 39.5 weeks in labor. Her labor was augmented with Pitocin. The patient developed fever with associated tachycardia and minimal variability. The patient progressed to 10 cm and was allowed to push. Following pushing, there was no lack of descent head. The fetus developed an elevation of the tachycardia to 1he 170s associated with minimal variability due to lack of descent and category 2 of monitor, it was decided to proceed with primary section. Indications discussed with the patient and informed consent was obtained. DESCRIPTION OF PROCEDURE: The patient was taken to the operating room where she had her epidural topped up. She was placed in dorsal supine position with leftward tilt. Of note, a Chung catheter was placed in the OR. She was then prepped and draped in the routine sterile fashion. A Pfannenstiel skin incision was made with the scalpel and the incision was further carried down to the underlying rectus fascia with the Bovie. The rectus fascia was incised in the midline and extended bilaterally. The inferior rectus fascial edge was grasped with Maico's and the underlying rectus muscle was dissected off the inferior rectus fascial edge. The same procedure was performed along the superior rectus fascial edge. The superior rectus muscle was in the midline. The peritoneum was identified, elevated and incised in superior and inferior manner. The bladder blade was placed and the bladder flap was created using sharp and blunt dissection. A lower uterine transverse incision was made with the knife and the uterine cavity was entered bluntly. The uterine incision was extended in a cephalocaudad manner. With assistance from the nurse, who placed her hand intravaginally to elevate the head the head was elevated out of the pelvis and delivered. The mouth and nares were suctioned. The umbilical cord was milked. The cord was then clamped and cut. The baby was handed off to the awaiting manager ambulatory. Cord blood was collected. The placenta was delivered spontaneously. The uterus was exteriorized and cleared of all clots and debris. The abdomen was irrigated and cleared of all clots and debris. The uterine incision was reapproximated with 0 Monocryl in a running lock fashion followed by an imbricated stitch with 0 Monocryl. The abdomen was irrigated and cleared of all clots and debris. The uterus was returned to the abdomen. Pelvic cavity was irrigated and cleared of all clots and debris. Uterine incision was reinspected. Good hemostasis was confirmed. The peritoneum was reapproximated with 2-0 vicryl in a running fashion. The rectus muscle was reapproximated with 2-0 Vicryl in a simple interrupted fashion. The wound was irrigated, cleared of clots and debris. The fascia was reapproximated with 0 Vicryl in a running fashion beginning in the left lateral corner going to midline and another stitch beginning in the right lateral corner going to the midline. Each suture was respectively tied. The wound was irrigated, good hemostasis was confirmed. The subcutaneous tissue was reapproximated with 2-0 plain in simple interrupted fashion and the skin was reapproximated with 3-0 Vicryl in a subcuticular fashion on a Lino needle. All instruments and lap counts were correct, and the patient returned to recovery room in satisfactory condition. Radha Peralta MD JOSIAS
[2018-07-02] MEDS: Oxycodone/Acetaminophen 5/325 mg Tab PO PRN (21:36)
[2018-07-03] MEDS: Multivitamin With Minerals Tab PO SCH (08:14)
--- NOTE | 2018-07-03 11:13 | OBPPN ---
Datetime: 07/03/2018 06:15 PP Pain Prov: Within normal limits PP Nausea Prov: Denies PP BM Prov: Yes PP Comments Phys Exam Prov: See progress note PP Impression Prov: Normal progression PP Plan Prov: Discharge PP Progress Note Prov: Patient seen and examined this AM s/p , in her POD3. The patient is ambulating w/o difficulties or dizziness, is tolerating PO food w/o N/V, voiding well w/o difficultie s, had a BM x1, patient reports lochia is less than menses in volume. Patient states that she has onl y mild pelvic pain decreased already when compared to previous day and need for taking pain medicine less often, denies ABDI, chills, fever, cough, chest pain, palpitations, SOB, blurry vision, calf pain . Patient reports she is baby and intercalating bottle-feeding too. O: VS WNL 07/03 4:00 BP 100/60 HR 68 T 98 GEN: NAD HEENT: Normocephalic, EOMI. RESP: CTA b/l CV: RRR, S1 S2 present, no murmurs noted. ABD: Soft, uterus firm about 1 cm below umbilicus level, Sx incision well approximated, clean, no redness or discharge noted. LE: No calf pain, Flaquito's negative. A/P 28 y/o , with good post- progression after going today into her POD3. Patient VS WNL, afebrile and stable to be D/C Home. -Continue post- monitoring -Motrin 600 PO Q6h PRN pain -Percocet 5/325 1 tab PO Q6h PRN pain moderate to severe -Encourage and ambulation -D/C home today with f/u at the clinic with PMD for wound check in 1 week and Post- f/u in 4 to 6 weeks. Ivory Logan MD PGY1 OB Attending covering 8am - 10am... On rounds I saw this patient. Agree with note JAQUANO Vital Signs Provider PP: Reviewed; Within Normal Limits
--- NOTE | 2018-07-03 11:13 | OBDCSUM ---
Datetime: 07/03/2018 06:17 Follow up at, Provider: Dr Millan at [facility] Disch Instr Diet: Regular Discharge Instructions, Provider: Routine instructions given Discharge Diagnosis, Provider: Term Delivered Contraception discussed, Prov: Yes Discharge Comment, Provider: 28 y/o , s/p on 06/30/18 at 39.5 weeks of GA, due to mater nal fever and tachycardia, patient delivered a baby girl, Wt 3000 gms, 9/9. Patient is am bulating w/o problems, tolerating oral food w/o N/V, passing gas per rectum, lochia is less than mens es in volume and pain from surgery is mild and gets relief with pain medication, patient is asymptoma tic and stable to be D/C home. GEN: NAD HEENT: Normocephalic, EOMI. RESP: CTA b/l CV: RRR, S1 S2 present, no murmurs noted. ABD: Soft, uterus firm about 1 cm below umbilicus level, Sx incision well approximated, clean, no redness or discharge noted. LE: No edema, Flaquito's negative D/C instructions: -Encourage -Ibuprofen 600 mg PO 1 tab PO Q6h for pain PRN -Percocet 5/325 1 tab PO Q6h PRN pain severe or moderate. -Discharge today -Ambulate w/ caution, no heavy lifting, if bleeding, fever, abdominal pain without relief from Tyl enol or Ibuprofen go to ED -D/C home today with f/u at the clinic with PMD for wound check in 1 week and Post- f/u in 4 to 6 weeks. Ivory Logan MD PGY1 OB Attending covering 8am - 10am... On rounds I saw this patient. Agree with note MAHNDO Contraception after Delivery: Control Pill/Patch
[2018-07-03 19:14] VITALS: BP 123/79; PULSE 75; TEMP 98.6; O2SAT 97
== END 2018-07-03 13:15 | disposition home or self-care (01) | DRG 765 ==
LOC: H.EROB2 01:15 → H.L&D 02:30 → H.OB/GYN 07-01 02:00
PROVIDERS: ADMIT Obstetrics & Gynecology; ATTEND Obstetrics & Gynecology
PROC: 10D00Z1 Extraction of Products of Conception, Low, Open Approach (ICD-10-PCS; principal; 2018-06-30)
PROC: 4A1HXCZ Monitoring of Products of Conception, Cardiac Rate, External Approach (ICD-10-PCS; 2018-06-30)
DX: O76 Abnormality in fetal heart rate and rhythm complicating labor and delivery (principal); O75.2 Pyrexia during labor, not elsewhere classified; Z37.0 Single live birth; O62.0 Primary inadequate contractions; Z3A.39 39 weeks gestation of pregnancy

== ENCOUNTER 2018-07-20 21:05 | Inpatient (IN) | payer MEDICAID, SELFPAY ==
[2018-07-20 21:05] VITALS: BMI 25.7
[2018-07-20] MEDS ORDERED: Sodium Chloride 0.9% 1,000 ML IV STA (21:41)
--- NOTE | 2018-07-20 21:44 | ED PDOC ---
HPI: Abdomen Time Seen by Provider: 07/20/18 21:24 Chief Complaint (Nursing): Chest Pain History Per: Patient Onset/Duration Of Symptoms: Days (1) Current Symptoms Are (Timing): Still Present Severity: Mild Location Of Pain/Discomfort: Epigastric Quality Of Discomfort: Sharp Associated Symptoms: Nausea. denies: Fever, Vomiting Exacerbating Factors: None Alleviating Factors: None Additional Complaint(s): Epigastric abd pain radiating to back assoc with nausea since this evening. Denies vomiting or fever.. S/p c/section 2 weeks ago. Denies urinary sxs. Past Medical History Vital Signs: Last Vital Signs Temp 98 F 07/21/18 13:09 Pulse 54 L 07/21/18 13:09 Resp 20 07/21/18 13:09 BP 107/68 07/21/18 13:09 Pulse Ox 98 07/21/18 13:09 - Medical History PMH: No Chronic Diseases Denies: Depression, Diabetes, HTN - Family History Family History: States: Unknown Family Hx - Immunization History Hx Tetanus Toxoid Vaccination: No Hx Influenza Vaccination: No Hx Pneumococcal Vaccination: No - Home Medications Home Medications: Ambulatory Orders Medication Instructions Recorded No Known Home Med 07/21/18 - Allergies Allergies/Adverse Reactions: Allergies Allergy/AdvReac Type Severity Reaction Status Date / Time No Known Allergies Allergy Verified 07/20/18 21:16 Review of Systems ROS Statement: Except As Marked, All Systems Reviewed And Found Negative Gastrointestinal: Positive for: Nausea, Abdominal Pain Physical Exam - Reviewed Nursing Documentation Reviewed: Yes Vital Signs Reviewed: Yes - Physical Exam Appears: Positive for: Non-toxic, No Acute Distress Head Exam: Positive for: ATRAUMATIC, NORMAL INSPECTION, NORMOCEPHALIC Skin: Positive for: Normal Color, Warm, DRY Eye Exam: Positive for: EOMI, Normal appearance, PERRL ENT: Positive for: Normal ENT Inspection Neck: Positive for: Normal, Painless ROM Cardiovascular/Chest: Positive for: Regular Rate, Rhythm Respiratory: Positive for: CNT, Normal Breath Sounds Gastrointestinal/Abdominal: Positive for: Soft, Tenderness (epigastric) Back: Positive for: Normal Inspection Extremity: Positive for: Normal ROM Neurologic/Psych: Positive for: Alert, Oriented - Laboratory Results Result Diagrams: 07/21/18 07:30 07/21/18 07:30 - ECG O2 Sat by Pulse Oximetry: 99 Disposition - Clinical Impression Clinical Impression: Cholelithiasis - Patient ED Disposition Is Patient to be Admitted: Transfer of Care - Disposition Disposition: Transfer of Care Disposition Time: 00:00 Condition: FAIR Patient Signed Over To: Ramiro Doyle
[2018-07-20 22:11] LABS: BASO % 0.3 % (0.0-2.0); EOS % 0.6 % (0.0-4.0); HEMOGLOBIN 14.1 g/dL (12.0-16.0); LYMPH % 13.3 % (20.0-40.0); MEAN CELL VOLUME 89.2 fl (81.0-99.0); MEAN CORPUSCULAR HEMOGLOBIN 29.9 pg (27.0-31.0); MEAN CORPUSCULAR HGB CONC 33.5 g/dL (33.0-37.0); MEAN PLATELET VOLUME 9.9 fl (7.2-11.7); MONO # 0.6 K/uL (0.0-0.8); MONO % 7.8 % (0.0-10.0); NEUT # 5.7 K/uL (1.8-7.0); NRBC % 0.1 % (0.0-0.0); RBC 4.71 Mil/uL (3.80-5.20); RED CELL DISTRIBUTION WIDTH 14.3 % (11.5-14.5); WHITE BLOOD COUNT 7.3 K/uL (4.8-10.8)
[2018-07-20 22:24] LABS: ALB/GLOB RATIO 1.5 (1.0-2.1); ALBUMIN 4.3 g/dL (3.5-5.0); ALT/SGPT 184 U/L (9-52); AST/SGOT 429 U/L (14-36); BLOOD UREA NITROGEN 22 mg/dl (7-17); CALCIUM 9.1 mg/dL (8.4-10.2); GFR NON-AFRICAN AMERICAN > 60; LIPASE 150 U/L (23-300)
--- NOTE | 2018-07-21 00:04 | ED PDOC ---
- Laboratory Results Result Diagrams: 07/20/18 22:07 07/20/18 22:07 - ECG O2 Sat by Pulse Oximetry: 99 (RA) Pulse Ox Interpretation: Normal Medical Decision Making Medical Decision Making: Time: 00:00 Patient was signed out to me by Dr. Alanis pending surgical consult and final disposition. 00:45 Case discussed with surgical TERRY Dr. Milan. Paatient for admission with plan for OR intervention. Discussed with hospitalist on duty Dr Guaman for admission Scribe Attestation: Documented by, Camille Nobles acting as a scribe for Ramiro Doyle MD. Provider Scribe Attestation: All medical record entries made by the Scribe were at my direction and personally dictated by me. I have reviewed the chart and agree that the record accurately reflects my personal performance of the history, physical exam, medical decision making, and the department course for this patient. I have also personally directed, reviewed, and agree with the discharge instructions and disposition. Disposition - Clinical Impression Clinical Impression: Cholelithiasis - POA Present On Arrival: None - Disposition Disposition: Admitted as In-Patient Disposition Time: 00:50 Condition: FAIR
--- NOTE | 2018-07-21 00:18 | CP.PCM.CON ---
Addendum entered and electronically signed by Good Reyna DO 07/21/18 13:45 : Addendum: Pt is declining surgery at this time. Dr. Jessica and team explained the risks and benefits of operation vs no operation and the pt understood and still is not wanting surgery at this time. At this time we recommend pt remain NPO and continue IV abx as she still has pain on exam, her LFTs were still elevated, and her Tbili was trending up. Further management per primary team. PGY4 Original Note: <Mike Milan - Last Filed: 07/21/18 07:01> History of Present Illness - History of Present Illness History of Present Illness: General Surgery Consult Note for Dr. Jessica Reason for consult: epigastric abdominal pain 28 F s/p POD#20 with no other significant PMH presents to [facility] with complaint of epigastric pain. Patient was seen and evaluated in the ED. Patient states pain began on Thursday after eating and after a few hours pain resolved. Pain recurred Thursday and Thursday as well. Pain has been constant for 1 day. She rates pain as moderate to severe. She describes pain as constant and sharp located in epigastrium radaiting to RUQ and back. She reports associated nausea. Eating aggravates symptoms but Denies alleviating factors. Denies fever/chills, chest pain, palpitations, SOB, vomiting, diarrhea, urinary symptoms or constipation. PMD: Dr. Millan PMHx: denies PSH: 06/30/18 Medications: none Allergies: NKDA FH: DM Social: denies tobacco/Etoh or drugs; LMP 09/25/18 Review of Systems - Review of Systems All systems: reviewed and no additional remarkable complaints except (as per HPI ) Past Patient History - Past Social History Smoking Status: Never Smoked - CARDIAC Hx Hypertension: No - PSYCHIATRIC Hx Depression: No - SURGICAL HISTORY Hx Surgeries: Yes Hx Section: Yes (x 1) - ANESTHESIA Hx Anesthesia: Yes Hx Anesthesia Reactions: No Hx Malignant Hyperthermia: No Meds Allergies/Adverse Reactions: Allergies Allergy/AdvReac Type Severity Reaction Status Date / Time No Known Allergies Allergy Verified 07/20/18 21:16 - Medications Medications: Current Medications Sodium Chloride (Sodium Chloride 0.9%) 1,000 mls @ 100 mls/hr IV .Q10H [facility] Stop: 07/21/18 07:40 Last Admin: 07/20/18 21:59 Dose: 100 mls/hr Physical Exam - Constitutional Appears: Non-toxic, No Acute Distress - Head Exam Head Exam: ATRAUMATIC, NORMOCEPHALIC - Eye Exam Eye Exam: EOMI, Normal appearance Pupil Exam: PERRL - ENT Exam ENT Exam: Mucous Membranes Moist - Respiratory Exam Respiratory Exam: NORMAL BREATHING PATTERN - Cardiovascular Exam Cardiovascular Exam: REGULAR RHYTHM - GI/Abdominal Exam GI & Abdominal Exam: Normal Bowel Sounds, Soft, Tenderness (Epigastrium/RUQ). absent: Distended, Firm, Hernia, Mass, Rebound, Rigid Additional comments: (-) Garcia's sign - Extremities Exam Extremities exam: Positive for: normal capillary refill, pedal pulses present. Negative for: calf tenderness, pedal edema - Back Exam Back exam: absent: CVA tenderness (L), CVA tenderness (R) - Neurological Exam Neurological exam: Alert, Oriented x3 - Psychiatric Exam Psychiatric exam: Normal Affect, Normal Mood - Skin Skin Exam: Dry, Intact, Normal Color, Warm Results - Vital Signs Recent Vital Signs: Last Vital Signs Temp 98.5 F 07/20/18 21:17 Pulse 66 07/20/18 21:17 Resp 16 07/20/18 21:17 BP 113/84 07/20/18 21:17 Pulse Ox 99 07/21/18 00:04 - Labs Result Diagrams: 07/20/18 22:07 07/20/18 22:07 Labs: Laboratory Results - last 24 hr 07/20/18 07/20/18 22:07 22:07 WBC 7.3 D RBC 4.71 Hgb 14.1 D Hct 42.1 MCV 89.2 MCH 29.9 MCHC 33.5 RDW 14.3 Plt Count 223 MPV 9.9 Neut % (Auto) 78.0 H Lymph % (Auto) 13.3 L Upson % (Auto) 7.8 Eos % (Auto) 0.6 Baso % (Auto) 0.3 Neut # (Auto) 5.7 Lymph # (Auto) 1.0 Upson # (Auto) 0.6 Eos # (Auto) 0.0 Baso # (Auto) 0.0 Sodium 138 Potassium 3.8 Chloride 105 Carbon Dioxide 25 Anion Gap 12 BUN 22 H Creatinine 0.7 Est GFR ( Amer) > 60 Est GFR (Non-Af Amer) > 60 Random Glucose 118 H Calcium 9.1 Total Bilirubin 0.5 AST 429 H D ALT 184 H D Alkaline Phosphatase 239 H D Total Protein 7.1 Albumin 4.3 Globulin 2.8 Albumin/Globulin Ratio 1.5 Lipase 150 Assessment & Plan - Assessment and Plan (Free Text) Assessment: 28F who presents for abdominal pain with elevated LFTs and ABUS which reveals cholelithiasis Plan: -NPO -IV fluids -IV abx -Analgesics/Anti-emetics PRN -I's&O's -f/u AM labs -Tentatively plan for Laparoscopic cholecystectomy with IOC -Further recommendations as per Dr. Jaskaran Milan PGY2 - Date & Time Date: 07/21/18 Time: 00:30 <Aram Jessica - Last Filed: 07/21/18 17:44> Meds - Medications Medications: Current Medications Piperacillin Sod/Tazobactam (Sod 3.375 gm/ Sodium Chloride) 100 mls @ 100 mls/ hr IVPB Q6H [facility] PRN Reason: Protocol Last Admin: 07/21/18 17:00 Dose: 100 mls/hr Potassium Chloride/Dextrose/Sod Cl (Potassium Chl 20 Meq In D5-1/2ns) 1,000 mls @ 125 mls/hr IV .Q8H [facility] Stop: 07/22/18 14:34 Last Admin: 07/21/18 15:27 Dose: 125 mls/hr Morphine Sulfate (Morphine) 2 mg IVP Q4 PRN PRN Reason: Pain, severe (8-10) Ondansetron HCl (Zofran Inj) 4 mg IVP Q6 PRN PRN Reason: Nausea/Vomiting Results - Vital Signs Recent Vital Signs: Last Vital Signs Temp 97.4 F L 07/21/18 16:17 Pulse 56 L 07/21/18 16:17 Resp 20 07/21/18 16:17 BP 130/68 07/21/18 16:17 Pulse Ox 99 07/21/18 16:17 - Labs Result Diagrams: 07/21/18 07:30 07/21/18 07:30 Labs: Laboratory Results - last 24 hr 07/20/18 07/20/18 07/21/18 22:07 22:07 07:30 WBC 7.3 D 3.9 L RBC 4.71 4.43 Hgb 14.1 D 13.3 Hct 42.1 39.8 MCV 89.2 89.7 MCH 29.9 30.0 MCHC 33.5 33.5 RDW 14.3 14.2 Plt Count 223 200 MPV 9.9 10.1 Neut % (Auto) 78.0 H 57.7 Lymph % (Auto) 13.3 L 28.1 Upson % (Auto) 7.8 9.8 Eos % (Auto) 0.6 3.9 Baso % (Auto) 0.3 0.5 Neut # (Auto) 5.7 2.2 Lymph # (Auto) 1.0 1.1 Upson # (Auto) 0.6 0.4 Eos # (Auto) 0.0 0.2 Baso # (Auto) 0.0 0.0 PT INR APTT Sodium 138 Potassium 3.8 Chloride 105 Carbon Dioxide 25 Anion Gap 12 BUN 22 H Creatinine 0.7 Est GFR ( Amer) > 60 Est GFR (Non-Af Amer) > 60 Random Glucose 118 H Calcium 9.1 Total Bilirubin 0.5 AST 429 H D ALT 184 H D Alkaline Phosphatase 239 H D Total Protein 7.1 Albumin 4.3 Globulin 2.8 Albumin/Globulin Ratio 1.5 Lipase 150 Blood Type Antibody Screen BBK History Checked 07/21/18 07/21/18 07/21/18 07:30 07:30 07:30 WBC RBC Hgb Hct MCV MCH MCHC RDW Plt Count MPV Neut % (Auto) Lymph % (Auto) Upson % (Auto) Eos % (Auto) Baso % (Auto) Neut # (Auto) Lymph # (Auto) Upson # (Auto) Eos # (Auto) Baso # (Auto) PT 11.4 INR 1.0 APTT 40.5 H Sodium 140 Potassium 3.7 Chloride 110 H Carbon Dioxide 23 Anion Gap 11 BUN 20 H Creatinine 0.7 Est GFR ( Amer) > 60 Est GFR (Non-Af Amer) > 60 Random Glucose 87 Calcium 9.0 Total Bilirubin 1.1 AST 106 H D ALT 140 H D Alkaline Phosphatase 183 H D Total Protein 6.9 Albumin 3.9 Globulin 3.0 Albumin/Globulin Ratio 1.3 Lipase Blood Type O POSITIVE Antibody Screen Negative BBK History Checked Patient has bt Assessment & Plan - Assessment and Plan (Free Text) Plan: I personally saw and examined the patient with the resident staff and agree with the above assessment and plan. I personally reviewed the available diagnostic images and imaging reports. Acute calculus cholecystitis. 2nd episode of biliary symptoms in last week. LFT downtrending but tbili increasing. Patient denies being hungry. Subjective pain improved but still has epigastric and RUQ tenderness. Patient was on the OR schedule for lap darcy earlier today and then refused surgery as she was concerned about having another operation so soon after her recent 3 weeks ago and the overall recovery from cholecystectomy. I recommended she undergo laparoscopic cholecystectomy this admission given the above findings. Long discussion regarding risk of waiting including recurrent attacks, on-going inflammation which could make later lap darcy more technically challenging and require open conversion, pancreatitis, and cholangitis. Benefits include gallbladder removal laparoscopically (accomplished 98% of the time) and discharge home the following day baring any complications (including but not limited to bleeding, infection, bile leak, bile duct injury and need for open surgery discussed), with light activity restrictions for 2-3 weeks post-operatively . She understands the above risks and benefits and does not want surgery at this time. Alternative less invasive option could be GI consult for ERCP and preemptive sphincterotomy for biliary decompression for her specific situation, however this is not standard practice
[2018-07-21] MEDS ORDERED: Piperacillin/Tazobact 3.375 GM in Sodium Chloride 0.9% 100 ML IVPB STA (00:49)
[2018-07-21] MEDS: Lactated Ringer's 1,000 ML IV SCH ×2 (01:25→14:20)
--- NOTE | 2018-07-21 01:55 | CP.PCM.HP ---
History of Present Illness - History of Present Illness History of Present Illness: 28 yr presents to ED with complaint of severe epigastric pain radiating to the back x 1 day. PMHx includes on 06/30/18. Associated symptoms are nausea and 1 episode of diarrhea, denies exacerbating or alleviating factors. Patient reports she had similar symptoms on thursday but they resolved and recurred today. Denies fever, chills, dysuria, hematuria, vomiting or constipation. Last meal was steamed chicken for dinner. PMD: [facility] OBGynHx: s/p on 06/30/18 for fever and tachycardia LMP: 09/25/18 PMHx: denies SurgHx: 06/30/18 FMHx: mother 55-healthy, fathe 58- NIDDM SocHx: denies tobacco/Etoh or drugs Medications: none Allergies: NKDA Code status: full code Emergency contact: Porter Cervantes (boyfriend) [phone] ER course: 113/84 mmHg, HR 66, Temp 98.5F, Resp rate 16, SpO2 99% on room air -EKG: normal sinus rhythm , 68 bpm, right bundle branch block -CBC wnl, CMP wnl -AST 429, ALT 184, alk phos 239, lipase 150 -US Abd Limited: Mulitple gallstones identified in the gallbladder without gallbladder wall thickening, edema or Garcia's sign. -UA: trace leukocyte, moderate blood; upreg negative -ER treatment: Famotidine 20mg IV once, NS 1L at 100mls/hr -Surgery consult: Aram Smith Present on Admission - Present on Admission Any Indicators Present on Admission: No History of DVT/PE: No History of Uncontrolled Diabetes: No Urinary Catheter: No Decubitus Ulcer Present: No History Surgical Site Infection Following: None Review of Systems - Constitutional Constitutional: absent: Chills, Weakness - EENT Eyes: absent: Change in Vision Ears: absent: Dizziness Nose/Mouth/Throat: absent: Nasal Congestion, Sore Throat - Cardiovascular Cardiovascular: absent: Chest Pain, Dyspnea - Respiratory Respiratory: absent: Cough, Hemoptysis - Gastrointestinal Gastrointestinal: Abdominal Pain, Diarrhea, Nausea. absent: Belching, Vomiting - Genitourinary Genitourinary: absent: Difficulty Urinating, Dysuria - Musculoskeletal Musculoskeletal: absent: Arthralgias, Numbness, Tingling - Integumentary Integumentary: absent: Bleeding Lesions - Neurological Neurological: absent: Confusion, Dizziness, Weakness - Endocrine Endocrine: absent: Polydipsia, Polyphagia, Polyuria - Hematologic/Lymphatic Hematologic: absent: Easy Bleeding, Easy Bruising Past Patient History - Past Social History Smoking Status: Never Smoked - CARDIAC Hx Hypertension: No - PSYCHIATRIC Hx Depression: No - SURGICAL HISTORY Hx Surgeries: Yes Hx Section: Yes (x 1) - ANESTHESIA Hx Anesthesia: Yes Hx Anesthesia Reactions: No Hx Malignant Hyperthermia: No Meds Allergies/Adverse Reactions: Allergies Allergy/AdvReac Type Severity Reaction Status Date / Time No Known Allergies Allergy Verified 07/20/18 21:16 Physical Exam - Constitutional Appears: No Acute Distress - Head Exam Head Exam: ATRAUMATIC, NORMOCEPHALIC - Eye Exam Eye Exam: EOMI, PERRL - ENT Exam ENT Exam: Mucous Membranes Moist - Neck Exam Neck exam: Positive for: Full Rom. Negative for: Lymphadenopathy - Respiratory Exam Respiratory Exam: Clear to Auscultation Bilateral, NORMAL BREATHING PATTERN - Cardiovascular Exam Cardiovascular Exam: REGULAR RHYTHM, +S1, +S2 - GI/Abdominal Exam GI & Abdominal Exam: Normal Bowel Sounds, Soft, Tenderness (to palpation in positive Hallieford sign, tenderness to palpation in suprapubic area surrounding Pfannenstiel incision (healing well-steri strips clean/dry/intact)). absent: Distended, Guarding, Rigid - Extremities Exam Extremities exam: Positive for: full ROM, pedal pulses present. Negative for: joint swelling, pedal edema, tenderness - Back Exam Back exam: absent: CVA tenderness (L), CVA tenderness (R) - Neurological Exam Neurological exam: Alert, CN II-XII Intact, Oriented x3 - Psychiatric Exam Psychiatric exam: Normal Affect, Normal Mood - Skin Skin Exam: Dry, Normal Color, Warm Results - Vital Signs Recent Vital Signs: Last Vital Signs Temp 98.5 F 07/20/18 21:17 Pulse 66 07/20/18 21:17 Resp 16 07/20/18 21:17 BP 113/84 07/20/18 21:17 Pulse Ox 99 07/21/18 00:55 - Labs Result Diagrams: 07/20/18 22:07 07/20/18 22:07 Labs: Laboratory Results - last 24 hr 07/20/18 07/20/18 22:07 22:07 WBC 7.3 D RBC 4.71 Hgb 14.1 D Hct 42.1 MCV 89.2 MCH 29.9 MCHC 33.5 RDW 14.3 Plt Count 223 MPV 9.9 Neut % (Auto) 78.0 H Lymph % (Auto) 13.3 L Lake % (Auto) 7.8 Eos % (Auto) 0.6 Baso % (Auto) 0.3 Neut # (Auto) 5.7 Lymph # (Auto) 1.0 [place] # (Auto) 0.6 Eos # (Auto) 0.0 Baso # (Auto) 0.0 Sodium 138 Potassium 3.8 Chloride 105 Carbon Dioxide 25 Anion Gap 12 BUN 22 H Creatinine 0.7 Est GFR ( Amer) > 60 Est GFR (Non-Af Amer) > 60 Random Glucose 118 H Calcium 9.1 Total Bilirubin 0.5 AST 429 H D ALT 184 H D Alkaline Phosphatase 239 H D Total Protein 7.1 Albumin 4.3 Globulin 2.8 Albumin/Globulin Ratio 1.5 Lipase 150 Assessment & Plan - Assessment and Plan (Free Text) Assessment: 28 yr old F admitted for symptomatic cholelithiasis. Acute Symptomatic Cholelithiasis -US Abd Limited: Mulitple gallstones identified in the gallbladder without gallbladder wall thickening, edema or Garcia's sign. -admit to med surg -NPO, IV fluids, pain management PRN, Zosyn 3.375 gm IV Q6, Zofran PRN nausea/ vomiting -Surgery consult appreciated: Aram Smith DVT prophylaxis -SCD's for now-possible OR tomorrow -Lovenox 40mg SC QD ordered for next day - Date & Time Date: 07/21/18 Time: 01:54
[2018-07-21] MEDS: Piperacillin/Tazobact 3.375 GM in Sodium Chloride 0.9% 100 ML IVPB SCH ×4 (06:30→23:08)
[2018-07-21] MEDS ORDERED: Lidocaine 1% Inj (20ml) ONE (09:00)
[2018-07-21 09:17] LABS: BASO % 0.5 % (0.0-2.0); EOS # 0.2 K/uL (0.0-0.7); EOS % 3.9 % (0.0-4.0); HEMOGLOBIN 13.3 g/dL (12.0-16.0); LYMPH # 1.1 K/uL (1.0-4.3); LYMPH % 28.1 % (20.0-40.0); MEAN CELL VOLUME 89.7 fl (81.0-99.0); MEAN CORPUSCULAR HGB CONC 33.5 g/dL (33.0-37.0); MEAN PLATELET VOLUME 10.1 fl (7.2-11.7); MONO # 0.4 K/uL (0.0-0.8); MONO % 9.8 % (0.0-10.0); NEUT # 2.2 K/uL (1.8-7.0); NEUT % 57.7 % (50.0-75.0); NRBC % 0.1 % (0.0-0.0); RBC 4.43 Mil/uL (3.80-5.20); RED CELL DISTRIBUTION WIDTH 14.2 % (11.5-14.5); WHITE BLOOD COUNT 3.9 K/uL (4.8-10.8)
[2018-07-21 09:22] LABS: PROTHROMBIN TIME 11.4 Seconds (9.8-13.1)
[2018-07-21 09:23] LABS: ALB/GLOB RATIO 1.3 (1.0-2.1); ALBUMIN 3.9 g/dL (3.5-5.0); ALT/SGPT 140 U/L (9-52); AST/SGOT 106 U/L (14-36); BLOOD UREA NITROGEN 20 mg/dl (7-17); GFR NON-AFRICAN AMERICAN > 60
[2018-07-21 09:25] LABS: PARTIAL THROMBOPLASTIN TIME 40.5 Seconds (25.6-37.1)
--- NOTE | 2018-07-21 13:14 | US ---
Date of service: 07/20/2018 HISTORY: Elevated LFTs COMPARISON: None. TECHNIQUE: Sonographic evaluation of the right upper quadrant of the abdomen. FINDINGS: LIVER: Measures 16.4 cm in length. Patent portal vein. Portal venous flow: Hepatopetal. Unremarkable echogenicity of the liver parenchyma. No mass. No intrahepatic bile duct dilatation. GALLBLADDER: Cholelithiasis. Negative study for gallbladder wall thickening, pericholecystic fluid, sonographic Garcia's sign. COMMON BILE DUCT: Measures 4.5 mm. No stones. No dilatation. PANCREAS: Unremarkable as visualized. No mass. No ductal dilatation. RIGHT KIDNEY: Measures 3.2 x 10.8 cm in length. Normal echogenicity. No calculus, mass, or hydronephrosis. AORTA: No aneurysmal dilatation. IVC: Unremarkable. OTHER FINDINGS: None . IMPRESSION: Cholelithiasis. No sonographic evidence of acute cholecystitis. Concordant results (preliminary interpretation) provided by [facility]. Procedure Completed: 23:08 Preliminary ([facility]Rad) Report: Dictated and Authenticated: 23:55 Final Interpretation: 13:12 July 21, 2018.
--- NOTE | 2018-07-21 14:33 | CP.PCM.PN ---
<Evette Moncada - Last Filed: 07/21/18 14:44> Subjective - Date & Time of Evaluation Date of Evaluation: 07/21/18 Time of Evaluation: 09:45 - Subjective Subjective: Patient seen bedside in no acute distress. She reports complete resolution of abdominal pain and would like to discuss medical management with surgical team as opposed to possible laparoscopic cholecystectomy. She is ambulating to the restroom. She denies nausea, vomiting, shortness of breath, chest pain at rest and/or with activity, constipation, diarrhea and dysuria. Objective - Vital Signs/Intake and Output Vital Signs (last 24 hours): Temp Pulse Resp BP Pulse Ox 98 F 54 L 20 107/68 98 07/21/18 13:07/21/18 13:09 07/21/18 13:07/21/18 13:07/21/18 13:09 Intake and Output: 07/21/18 07/21/18 06:59 18:59 Intake Total 350 Balance 350 - Medications Medications: Current Medications Lactated Ringer's (Lactated Ringer's) 1,000 mls @ 100 mls/hr IV .Q10H [facility] Last Admin: 07/21/18 14:20 Dose: 100 mls/hr Piperacillin Sod/Tazobactam (Sod 3.375 gm/ Sodium Chloride) 100 mls @ 100 mls/ hr IVPB Q6H [facility] PRN Reason: Protocol Last Admin: 07/21/18 11:28 Dose: 100 mls/hr Morphine Sulfate (Morphine) 2 mg IVP Q4 PRN PRN Reason: Pain, severe (8-10) Ondansetron HCl (Zofran Inj) 4 mg IVP Q6 PRN PRN Reason: Nausea/Vomiting - Labs Labs: 07/21/18 07:30 07/21/18 07:30 PT 11.4 Seconds (9.8-13.1) 07/21/18 07:30 INR 1.0 07/21/18 07:30 APTT 40.5 Seconds (25.6-37.1) H 07/21/18 07:30 - Constitutional Appears: Non-toxic - Head Exam Head Exam: NORMAL INSPECTION - Eye Exam Eye Exam: Normal appearance - ENT Exam ENT Exam: Normal External Ear Exam - Neck Exam Neck Exam: Full ROM, Normal Inspection - Respiratory Exam Respiratory Exam: Clear to Ausculation Bilateral, NORMAL BREATHING PATTERN - Cardiovascular Exam Cardiovascular Exam: REGULAR RHYTHM - GI/Abdominal Exam GI & Abdominal Exam: Soft, Normal Bowel Sounds. absent: Distended, Guarding, Tenderness, Rebound Additional comments: C/S wound dressing dry and intact, not removed. No signs of erythema. - Extremities Exam Extremities Exam: Normal Inspection - Neurological Exam Neurological Exam: Alert, Awake, Oriented x3 - Psychiatric Exam Psychiatric exam: Normal Affect, Normal Mood - Skin Skin Exam: Normal Color, Warm Assessment and Plan - Assessment and Plan (Free Text) Assessment: 28 yr old F admitted for symptomatic cholelithiasis. Acute Symptomatic Cholelithiasis -US Abd Limited: Mulitple gallstones identified in the gallbladder without gallbladder wall thickening, edema or Garcia's sign. -NPO -IV fluids D5 0.5 NS + 20 meq K -Pain management: 2mg IVP Q4 PRN -Zosyn 3.375 gm IV Q6 -Zofran PRN (nausea/vomiting) -Surgery recommendation: remain NPO, continue with Zosyn 3.375 gm IV Q6 DVT prophylaxis -SCDs <Anayeli Cameron - Last Filed: 07/21/18 18:11> Objective - Vital Signs/Intake and Output Vital Signs (last 24 hours): Temp Pulse Resp BP Pulse Ox 97.4 F L 56 L 20 130/68 99 07/21/18 16:17 07/21/18 16:17 07/21/18 16:17 07/21/18 16:17 07/21/18 16:17 Intake and Output: 07/21/18 07/21/18 06:59 18:59 Intake Total 350 1400 Balance 350 1400 - Medications Medications: Current Medications Piperacillin Sod/Tazobactam (Sod 3.375 gm/ Sodium Chloride) 100 mls @ 100 mls/ hr IVPB Q6H [facility] PRN Reason: Protocol Last Admin: 07/21/18 17:00 Dose: 100 mls/hr Potassium Chloride/Dextrose/Sod Cl (Potassium Chl 20 Meq In D5-1/2ns) 1,000 mls @ 125 mls/hr IV .Q8H [facility] Stop: 07/22/18 14:34 Last Admin: 07/21/18 15:27 Dose: 125 mls/hr Morphine Sulfate (Morphine) 2 mg IVP Q4 PRN PRN Reason: Pain, severe (8-10) Ondansetron HCl (Zofran Inj) 4 mg IVP Q6 PRN PRN Reason: Nausea/Vomiting - Labs Labs: 07/21/18 07:30 07/21/18 07:30 PT 11.4 Seconds (9.8-13.1) 07/21/18 07:30 INR 1.0 07/21/18 07:30 APTT 40.5 Seconds (25.6-37.1) H 07/21/18 07:30 Attending/Attestation - Attestation I have personally seen and examined this patient.: Yes I have fully participated in the care of the patient.: Yes I have reviewed all pertinent clinical information, including history, physical exam and plan: Yes Notes (Text): 07/21/18 18:10 Seen, examined, and discussed with resident. Agree with findings and plan as above. Patient refused surgery multiples times throughout the day. Now agreeable and asking for immediate surgery to go home tnight. It was explained she is scheduled for tomorrow.
[2018-07-21] MEDS ORDERED: Dexamethasone 4 mg/1 ml IVP PRN (15:22)
[2018-07-21] MEDS ORDERED: HYDROmorphone 0.5 mg/0.5 ml ISec IVP PRN (15:22)
[2018-07-21] MEDS ORDERED: DiphenhydrAMINE 50 mg/ml Inj IVP PRN (15:22)
[2018-07-21] MEDS: Potassium Ch 20mEq in D5-1/2NS 1,000 ML IV SCH (15:27)
[2018-07-21] MEDS ORDERED: Lactated Ringer's 1,000 ML IV SCH (15:30)
[2018-07-22] MEDS: Piperacillin/Tazobact 3.375 GM in Sodium Chloride 0.9% 100 ML IVPB SCH ×3 (05:20→17:20)
[2018-07-22] MEDS: Potassium Ch 20mEq in D5-1/2NS 1,000 ML IV SCH (05:41)
[2018-07-22 08:02] LABS: HEMOGLOBIN 13.8 g/dL (12.0-16.0); MEAN CELL VOLUME 88.9 fl (81.0-99.0); MEAN CORPUSCULAR HEMOGLOBIN 29.9 pg (27.0-31.0); MEAN CORPUSCULAR HGB CONC 33.6 g/dL (33.0-37.0); RBC 4.62 Mil/uL (3.80-5.20); WHITE BLOOD COUNT 4.4 K/uL (4.8-10.8)
[2018-07-22 08:04] LABS: PROTHROMBIN TIME 11.4 Seconds (9.8-13.1)
[2018-07-22 08:07] LABS: PARTIAL THROMBOPLASTIN TIME 43.8 Seconds (25.6-37.1)
[2018-07-22 08:15] LABS: BLOOD UREA NITROGEN 12 mg/dl (7-17); CALCIUM 9.4 mg/dL (8.4-10.2); GFR NON-AFRICAN AMERICAN > 60
[2018-07-22] MEDS ORDERED: Enoxaparin 40 mg Syringe SC SCH (09:00)
[2018-07-22 09:07] LABS: ALB/GLOB RATIO 1.4 (1.0-2.1); ALBUMIN 3.9 g/dL (3.5-5.0); ALT/SGPT 95 U/L (9-52); AST/SGOT 54 U/L (14-36); BILIRUBIN,DIRECT 0.2 mg/ml (0.0-0.4)
--- NOTE | 2018-07-22 09:44 | CP.PCM.PN ---
<ArmandEvette horton - Last Filed: 07/22/18 09:50> Subjective - Date & Time of Evaluation Date of Evaluation: 07/22/18 Time of Evaluation: 09:43 - Subjective Subjective: Patient seen bedside in no acute distress. She reports no pain and after refusing surgery multiple times has now consented for a laparoscopic cholecystectomy. She is ambulating to the restroom and denies nausea, vomiting, shortness of breath, chest pain at rest and/or with activity, constipation, diarrhea and dysuria. Objective - Vital Signs/Intake and Output Vital Signs (last 24 hours): Temp Pulse Resp BP Pulse Ox 97.3 F L 64 18 109/60 99 07/22/18 09:00 07/22/18 09:00 07/22/18 09:00 07/22/18 09:00 07/22/18 09:00 Intake and Output: 07/22/18 07/22/18 06:59 18:59 Intake Total 1700 Balance 1700 - Medications Medications: Current Medications Piperacillin Sod/Tazobactam (Sod 3.375 gm/ Sodium Chloride) 100 mls @ 100 mls/ hr IVPB Q6H [facility] PRN Reason: Protocol Last Admin: 07/22/18 05:20 Dose: 100 mls/hr Potassium Chloride/Dextrose/Sod Cl (Potassium Chl 20 Meq In D5-1/2ns) 1,000 mls @ 125 mls/hr IV .Q8H [facility] Stop: 07/22/18 14:34 Last Admin: 07/22/18 05:41 Dose: 125 mls/hr Morphine Sulfate (Morphine) 2 mg IVP Q4 PRN PRN Reason: Pain, severe (8-10) Ondansetron HCl (Zofran Inj) 4 mg IVP Q6 PRN PRN Reason: Nausea/Vomiting - Labs Labs: 07/22/18 07:54 07/22/18 07:54 PT 11.4 Seconds (9.8-13.1) 07/22/18 07:54 INR 1.0 07/22/18 07:54 APTT 43.8 Seconds (25.6-37.1) H 07/22/18 07:54 - Constitutional Appears: Non-toxic - Head Exam Head Exam: NORMAL INSPECTION - Eye Exam Eye Exam: Normal appearance - ENT Exam ENT Exam: Normal External Ear Exam - Neck Exam Neck Exam: Normal Inspection - Respiratory Exam Respiratory Exam: Clear to Ausculation Bilateral, NORMAL BREATHING PATTERN - Cardiovascular Exam Cardiovascular Exam: REGULAR RHYTHM - GI/Abdominal Exam GI & Abdominal Exam: Soft. absent: Guarding, Tenderness, Rebound - Extremities Exam Extremities Exam: Normal Inspection - Neurological Exam Neurological Exam: Alert, Awake, Oriented x3 - Psychiatric Exam Psychiatric exam: Normal Affect, Normal Mood - Skin Skin Exam: Normal Color, Warm Assessment and Plan - Assessment and Plan (Free Text) Assessment: Assessment: 28 yr old F admitted for symptomatic cholelithiasis. Acute Symptomatic Cholelithiasis -US Abd Limited: Mulitple gallstones identified in the gallbladder without gallbladder wall thickening, edema or Garcia's sign. -NPO -IV fluids D5 0.5 NS + 20 meq K -Zosyn 3.375 gm IV Q6 -Zofran PRN (nausea/vomiting) -After multiple refusals for surgery patient has now consented, possible lap darcy today DVT prophylaxis -SCDs -Patient ambulating <Anayeli Cameron - Last Filed: 07/22/18 15:23> Objective - Vital Signs/Intake and Output Vital Signs (last 24 hours): Temp Pulse Resp BP Pulse Ox 98.1 F 60 18 109/60 100 07/22/18 12:06 07/22/18 12:06 07/22/18 12:06 07/22/18 09:00 07/22/18 12:06 Intake and Output: 07/22/18 07/22/18 06:59 18:59 Intake Total 1700 1000 Balance 1700 1000 - Medications Medications: Current Medications Piperacillin Sod/Tazobactam (Sod 3.375 gm/ Sodium Chloride) 100 mls @ 100 mls/ hr IVPB Q6H [facility] PRN Reason: Protocol Last Admin: 07/22/18 12:03 Dose: 100 mls/hr Ketorolac Tromethamine (Toradol) 10 mg PO Q6 PRN PRN Reason: Pain, moderate (4-7) Ondansetron HCl (Zofran Inj) 4 mg IVP Q6 PRN PRN Reason: Nausea/Vomiting Oxycodone/Acetaminophen (Percocet 5/325 Mg Tab) 1 tab PO Q4H PRN PRN Reason: Pain, moderate (4-7) Stop: 09/09/18 15:21 - Labs Labs: 07/22/18 07:54 07/22/18 07:54 PT 11.4 Seconds (9.8-13.1) 07/22/18 07:54 INR 1.0 07/22/18 07:54 APTT 43.8 Seconds (25.6-37.1) H 07/22/18 07:54 Attending/Attestation - Attestation I have personally seen and examined this patient.: Yes I have fully participated in the care of the patient.: Yes I have reviewed all pertinent clinical information, including history, physical exam and plan: Yes Notes (Text): 07/22/18 15:23 Seen, examined, and discussed with resident. Agree with findings and plan as above.
[2018-07-22] MEDS ORDERED: Bupivacaine HCl 0.5% PF (30 ml) Inj ONE (13:03)
[2018-07-22] MEDS ORDERED: Glucagon Recombinant 1 mg Inj ONE (13:03)
[2018-07-22] MEDS ORDERED: Iohexol 300 100 ML IJ ONE (13:03)
[2018-07-22] MEDS ORDERED: Propofol 10 mg/ml Inj (20 ML) ONE (13:17)
[2018-07-22] MEDS ORDERED: Succinylcholine 200 mg/10 ml Inj IV ONE (13:17)
[2018-07-22] MEDS ORDERED: Rocuronium 10 mg/ml (5 ml) ONE (13:17)
[2018-07-22] MEDS ORDERED: Lactated Ringer's 1,000 ML IV ONE ×2 (13:20→15:00)
[2018-07-22] MEDS ORDERED: Sevoflurane - Inhalation Anesthetic Liq (250 ml) ONE (13:22)
[2018-07-22] MEDS ORDERED: Lidocaine 1% Inj (20ml) IJ ONE ×2 (13:48)
[2018-07-22] MEDS: HYDROmorphone 0.5 mg/0.5 ml ISec IVP PRN ×3 (15:15→16:25)
--- NOTE | 2018-07-22 15:19 | PCM.SURG1 ---
Surgeon's Initial Post Op Note - Surgeon's Notes Surgeon: Jaskaran Roof Truss Builder: PGY4 Type of Anesthesia: General Endo, Local Pre-Operative Diagnosis: Acute cholecystitis Operative Findings: see op note Post-Operative Diagnosis: Acute cholecystitis Operation Performed: Laparoscopic cholecystectomy Specimen/Specimens Removed: gallbladder Estimated Blood Loss: EBL {In ML}: 20 Blood Products Given: N/A Drains Used: No Drains Post-Op Condition: Good Date of Surgery/Procedure: 07/22/18 Time of Surgery/Procedure: 13:20
[2018-07-22] MEDS ORDERED: Oxycodone/Acetaminophen 5/325 mg Tab PO PRN (15:20)
[2018-07-22] MEDS ORDERED: Lactated Ringer's 1,000 ML IV SCH (15:30)
--- NOTE | 2018-07-22 17:11 | PCM.OP ---
Operative Report - Operative Report Date of Surgery/Procedure: 07/22/18 Time of Surgery/Procedure: 13:30 Surgeon: Aram Jessica MD [employer] Professor: Magan Reyna DO (PGY4 resident) Anesthesia/Sedation: General endotracheal; 1% lidocaine + 0.25% Marcaine mix local anesthesia Pre-Operative Diagnosis: Acute calculus cholecystitis Post-Operative Diagnosis: Acute calculus cholecystitis Indication for Surgery: This is a 28-year-old female admitted with recurrent RUQ pain due to symptomatic cholelithiasis and acute cholecystitis on RUQ US. Details of HPI in clinical chart. Taken to the operating room for laparoscopic cholecystectomy. Patient understands the risks and benefits of the procedure as documented in the clinic chart but specifically risk of cystic duct leak and common bile duct injury, need for open surgery and has consented to the procedure. Operative Findings: Dilated, Fluid filled gallbladder. Moderate inflammation. Clips in place on cystic duct and cystic artery at end of case without evidence of bleeding or bile leak. Omental adhesions to lower abdomonal wall consistent with recent pfannenstiel incision. Procedure/Operation Description: PROCEDURES PERFORMED: 1) Laparoscopic Cholecystectomy. . DESCRIPTION OF PROCEDURE: The patient was given a preoperative dose of Zosyn before the incision. SCD boots were placed for DVT prophylaxis. The patient had an orogastric tube placed in order to empty the stomach after the induction of general anesthesia. Upper and lower body warmer placed to maintain normothermia. Secure straps placed above and bleow the knees Arms placed on arm boards out at 80 degress. No kowalski catheter used as patient voided immediately prior in pre-op holding. All bony prominences were padded. A timeout was performed prior to incision. The abdomen was prepped and draped in sterile fashion. All skin incisions were made using an 11 blade scalpel after being pre-anesthetized with local anesthesia. In the infraaumbilical midline, a circumlinear incision was made and the umbilical raphe was identified and the fascia was divided between clamps at its base entering the abdomen in an open fashion. A 11-mm trocar was inserted in the abdomen and the abdomen was insufflated to 15 mmHg pressure with CO2. A 30- degree viewing scope was then inserted and the abdomen was generally inspected and there was not found to be any additional signs of pathology. In the right upper quadrant, two 5-mm ports were placed after the under direct vision and in the subxiphoid midline, an 11-mm radially dilating port was placed in the similar fashion. . There was significant inflammation in the right upper abdomen and a large dilated gallbladder fundus was identified beneath the liver edge. The fundus of the gallbladder was then retracted to the right upper quadrant and the neck of the gallbladder was visualized. The peritoneal attachments from the lateral portion of the gallbladder/cystic duct junction were gently dissected and divided to open up the [place]. The [place] was then dissected up onto the liver bed posterior to the gallbladder in order to ensure that this was the cystic duct and not tenting of the common bile duct. The peritoneal attachments on the medial portion of the gallbladder going up to the side of the liver were taken and distal third of galbbladder dissected off the cystic plate. The critical view was obtained. The cystic artery and duct were sequentially then doubly clipped and ligated and the clips were inspected. . Once this was completed, the gallbladder was dissected free from the liver bed using electrocautery and placed this in an endo catch bag. This was withdrawn through the umbilical port. The abdomen was reinspected. The clips were in good position on the cystic artery and duct stumps and the abdomen was generally irrigated and drained. The ports were then removed from the abdomen and the abdomen was desufflated with air. The umbilical port was closed with [id number] 0- Vicryl suture, skin incisions closed with 4-0 Vicryl sutures, and finally dermabond applied to skin. The patient tolerated the procedure well and was extubated and stable in recovery after the procedure. . I was present throughout the entirety of the procedure. Sponge, needle and instrument counts were correct. Estimated Blood Loss: 10mL Complications: none Specimen: gallbladder Discharge & Condition: above
[2018-07-22 18:25] VITALS: O2SAT 98
[2018-07-22 22:18] VITALS: BP 119/68; PULSE 78; RESP 20; TEMP 99.5
--- NOTE | 2018-07-23 05:19 | CP.PCM.DIS ---
Provider - Provider Date of Admission: 07/21/18 00:29 Attending physician: Star Guaman MD Consults: Aram Smith Time Spent in preparation of Discharge (in minutes): 35 Diagnosis - Discharge Diagnosis (1) Symptomatic cholelithiasis Status: Resolved Priority: Low (2) S/P laparoscopic cholecystectomy Status: Acute Priority: Low Hospital Course - Lab Results Lab Results: Most Recent Lab Values WBC 4.4 K/uL (4.8-10.8) L 07/22/18 07:54 RBC 4.62 Mil/uL (3.80-5.20) 07/22/18 07:54 Hgb 13.8 g/dL (12.0-16.0) 07/22/18 07:54 Hct 41.1 % (34.0-47.0) 07/22/18 07:54 MCV 88.9 fl (81.0-99.0) 07/22/18 07:54 MCH 29.9 pg (27.0-31.0) 07/22/18 07:54 MCHC 33.6 g/dL (33.0-37.0) 07/22/18 07:54 RDW 14.0 % (11.5-14.5) 07/22/18 07:54 Plt Count 200 K/uL (130-400) 07/22/18 07:54 MPV 10.1 fl (7.2-11.7) 07/21/18 07:30 Neut % (Auto) 57.7 % (50.0-75.0) 07/21/18 07:30 Lymph % (Auto) 28.1 % (20.0-40.0) 07/21/18 07:30 [place] % (Auto) 9.8 % (0.0-10.0) 07/21/18 07:30 Eos % (Auto) 3.9 % (0.0-4.0) 07/21/18 07:30 Baso % (Auto) 0.5 % (0.0-2.0) 07/21/18 07:30 Neut # (Auto) 2.2 K/uL (1.8-7.0) 07/21/18 07:30 Lymph # (Auto) 1.1 K/uL (1.0-4.3) 07/21/18 07:30 [place] # (Auto) 0.4 K/uL (0.0-0.8) 07/21/18 07:30 Eos # (Auto) 0.2 K/uL (0.0-0.7) 07/21/18 07:30 Baso # (Auto) 0.0 K/uL (0.0-0.2) 07/21/18 07:30 PT 11.4 Seconds (9.8-13.1) 07/22/18 07:54 INR 1.0 07/22/18 07:54 APTT 43.8 Seconds (25.6-37.1) H 07/22/18 07:54 Sodium 139 mmol/l (132-148) 07/22/18 07:54 Potassium 4.6 MMOL/L (3.6-5.0) 07/22/18 07:54 Chloride 106 mmol/L (98-107) 07/22/18 07:54 Carbon Dioxide 25 mmol/L (22-30) 07/22/18 07:54 Anion Gap 13 (10-20) 07/22/18 07:54 BUN 12 mg/dl (7-17) 07/22/18 07:54 Creatinine 0.7 mg/dl (0.7-1.2) 07/22/18 07:54 Est GFR ( Amer) > 60 07/22/18 07:54 Est GFR (Non-Af Amer) > 60 07/22/18 07:54 Random Glucose 82 mg/dL (65-105) 07/22/18 07:54 Calcium 9.4 mg/dL (8.4-10.2) 07/22/18 07:54 Total Bilirubin 1.1 mg/dl (0.2-1.3) 07/22/18 07:54 Direct Bilirubin 0.2 mg/ml (0.0-0.4) 07/22/18 07:54 AST 54 U/L (14-36) H D 07/22/18 07:54 ALT 95 U/L (9-52) H D 07/22/18 07:54 Alkaline Phosphatase 141 U/L (38-126) H D 07/22/18 07:54 Total Protein 6.7 G/DL (6.3-8.2) 07/22/18 07:54 Albumin 3.9 g/dL (3.5-5.0) 07/22/18 07:54 Globulin 2.8 gm/dL (2.2-3.9) 07/22/18 07:54 Albumin/Globulin Ratio 1.4 (1.0-2.1) 07/22/18 07:54 Lipase 150 U/L (23-300) 07/20/18 22:07 Blood Type O POSITIVE 07/21/18 07:30 Antibody Screen Negative 07/21/18 07:30 BBK History Checked Patient has bt 07/21/18 07:30 - Hospital Course Hospital Course: 28 yr old F admitted for symptomatic cholelithiasis. Patients symptoms improved with NPO diet, IV fluids and IV antibiotics. She was evaluated by surgery and laparoscopic cholecystectomy was recommended. Patient initially refused surgery , then agreed to proceed as pain persisted. Patient is POD # 0 s/p laparoscopic cholecystectomy with no complications. She is tolerating PO diet, ambulating and has normal urine output. She has remained afebrile and pain is controlled with medication. She is stable for discharge with intructions to follow up in [facility] on 07/30/[address] Higgins, follow up with surgery-Aram Smith within 1 week, take medications as prescribed PRN for pain, eat low fat diet, ambulate in home or take short walks, adequate hydration. ER precautions were reviewed (worsening pain, fever 100.4 F and above , persistent vomiting). - Date & Time of H&P Date of H&P: 07/21/18 Time of H&P: 01:54 Discharge Exam - Head Exam Head Exam: NORMAL INSPECTION - Eye Exam Eye Exam: EOMI, PERRL - ENT Exam ENT Exam: Mucous Membranes Moist - Neck Exam Neck exam: Full Rom - Respiratory Exam Respiratory Exam: Clear to PA & Lateral, NORMAL BREATHING PATTERN. absent: Rhonchi - Cardiovascular Exam Cardiovascular Exam: REGULAR RHYTHM, +S1, +S2 - GI/Abdominal Exam GI & Abdominal Exam: Normal Bowel Sounds, Soft, Tenderness (mild tenderness to palpation near laparoscopy incision sites) - Extremities Exam Extremities exam: full ROM, normal capillary refill, pedal pulses present - Neurological Exam Neurological exam: Alert, CN II-XII Intact, Oriented x3 - Psychiatric Exam Psychiatric exam: Normal Affect, Normal Mood - Skin Skin Exam: Dry, Normal Color, Warm Discharge Plan - Discharge Medications Prescriptions: Ibuprofen 600 mg PO Q8 PRN #20 tablet PRN Reason: Pain, Moderate (4-7) oxyCODONE/Acetaminophen [Percocet 5/325 mg Tab] 1 tab PO Q8 PRN #10 tab PRN Reason: Pain, Severe (8-10) - Follow Up Plan Condition: FAIR Disposition: HOME/ ROUTINE Instructions: How to Prevent Surgical Site Infections, Cholecystectomy, Laparoscopic Surgery Additional Instructions: -Follow up in [facility] on 07/30/[address] Higgins -Follow up with surgery-Aram Smith within 1 week -Take medications as prescribed PRN for pain -Eat low fat diet, ambulate in home- or take short walks, adequate hydration -ER precautions reviewed (worsening pain, fever 100.4 F and above, persistent vomiting) Referrals: [facility] [Provider Group] Aram Jessica MD [Staff Provider] -
== END 2018-07-22 23:30 | disposition home or self-care (01) | DRG 419 ==
LOC: H.ER 21:05 → H.ERHOLD 07-21 00:29 → H.PEDS 07-21 02:14
PROVIDERS: ADMIT Internal Medicine; ATTEND Internal Medicine
PROC: 0FT44ZZ Resection of Gallbladder, Percutaneous Endoscopic Approach (ICD-10-PCS; principal; 2018-07-22 13:30)
DX: K80.00 Calculus of gallbladder with acute cholecystitis without obstruction (principal); K66.0 Peritoneal adhesions (postprocedural) (postinfection); Z98.891 History of uterine scar from previous surgery